=== PATIENT | female | born 2005 | race Caucasian/White ===

== ENCOUNTER 2024-06-15 05:18 | Emergency (ER) | payer OTHER, SELFPAY ==
[2024-06-15 05:24] VITALS: PULSE 112; TEMP 37; O2SAT 98; BMI 52.9
[2024-06-15 05:29] VITALS: BP 138/85
--- NOTE | 2024-06-15 05:47 | ED_ITS ---
HPI HPI - Back Pain/Injury General Chief Complaint: Back Pain/Injury Stated Complaint: BACK PAIN Time Seen by Provider: 06/15/24 05:24 Source: patient Mode of arrival: walk-in History of Present Illness HPI Narrative: This 19-year-old female who is 15 weeks presents for evaluation of right low back pain. The patient states she was recently diagnosed with an upper respiratory tract infection at [facility] emergency department. She was also told by her family physician that she has -induced asthma. She does not smoke but has been coughing recently and yesterday after a coughing spell felt a popping sensation in her right flank area. She was seen again at [facility] and told that she had a muscle strain and prescribed Tylenol. She states she is still having the pain despite the Tylenol and talk to her aunt about it who is in healthcare and was told that she may have herniated the disc. She also told her that it was safe to have certain radiographic studies done when you are . The patient is not having any fever. She has no lower extremity pain or swelling. She denies any chest pain but does have a dry cough. She has a lidocaine patch over her right flank area. She denies any urinary symptoms. She took Tylenol around midnight but has not taken any since. She is not having any vaginal bleeding or related complaints. Related Data Allergies Allergy/AdvReac Type Severity Reaction Status Date / Time promethazine Allergy Severe Hallucinati Verified 06/15/24 05:28 ng Sulfa (Sulfonamide Allergy Severe Hives Verified 06/15/24 05:28 Antibiotics) Opioid HPI Opioid Management Most Recent Opioid Data: No Data to Display Review of Systems ROS Status of ROS 10 or more systems reviewed and unremark able except as noted in history and below PFSH PFSH Social History Little interest or pleasure in doing things: not at all Feeling down, depressed, or hopeless: not at all Exam Narrative Exam Narrative: Vital signs and Nursing Notes reviewed: Patient is afebrile, she is tachycardic with a pulse of 112, blood pressure is mildly elevated 138/85, she has not hypoxic with pulse ox of 98% on room air General: Awake, alert, oriented, obese female resting comfortably on the stretcher, she has audible nasal congestion and intermittent dry cough HEENT: Normocephalic atraumatic, mucous membranes are moist and pink, eyes are clear, normal conjunctiva, vision is grossly intact, posterior pharynx is normal in appearance. Neck: Supple, no meningeal signs Chest: Lungs are clear to auscultation with good air entry, there is no wheezing rhonchi or rales appreciated no accessory muscle use, patient is speaking in complete sentences-no chest wall tenderness to palpation, intermittent dry cough noted CVS: Regular rate and rhythm S1-S2, no murmurs rubs or gallops, pulses are brisk and equal bilaterally ABD: Obese, soft, nondistended, nontender, no rebound guarding or rigidity, bowel sounds are normal Extremities: Moving all extremities, no lower extremity tenderness or swelling noted, negative Homans' sign, pulses are brisk and equal bilaterally Skin: Normal in appearance without rash,pallor, petechiae or purpura Neuro: No focal deficits Constitutional Vital Signs, click to edit/add: Last Vital Signs Temp 98.6 F 06/15/24 05:24 Pulse 112 H 06/15/24 05:24 Resp 18 06/15/24 05:24 BP 138/85 06/15/24 05:29 Pulse Ox 98 06/15/24 05:24 Course Vital Signs Vital signs: Vital Signs Temperature 98.6 F 06/15/24 05:24 Pulse Rate 112 H 06/15/24 05:24 Respiratory Rate 18 06/15/24 05:24 Pulse Oximetry 98 06/15/24 05:24 Temperature 98.6 F 06/15/24 05:24 Pulse Rate 112 H 06/15/24 05:24 Respiratory Rate 18 06/15/24 05:24 Blood Pressure 138/85 06/15/24 05:29 Pulse Oximetry 98 06/15/24 05:24 MDM - Back Pain/Injury MDM Narrative Medical decision making narrative: This 19-year-old female who is obese and 15 weeks presents for evaluation of right mid to low flank pain that started recently after an episode of coughing. She states that her family physician told her that she has -induced asthma and she was started on albuterol MDI. Her coughing lead to flank pain started yesterday and she was seen at [facility]. At [facility] she was told that she had a musculoskeletal back strain but her brad yfriend explains that she did not really get evaluated at that time. She is not having any urinary symptoms or related complaints. She has no lower extremity pain or swelling. She has not had a fever. A family member told her that she may have herniated disc while coughing. She does not have any midline bony vertebral tenderness and there is no radiation of her pain into her buttock s or legs. She does have audible nasal congestion and intermittent cough although her lungs are clear. She had been told by a family member that x-rays are safe in . I do not think that x-raying her back will give me any pertinent information but I do think a chest x-ray to rule out pneumonia is safe and prudent. A urine was ordered due to the fact that she is having flank pain although she does not appear to be passing a kidney stone clinically. She was medicated with Tylenol. She is wearing a lidocaine patch over her right flank. Urine is negative for infection and two-view chest x-ray was reviewed by myself. It does not show any acute pulmonary infiltrate, pneumothorax, she has normal cardiac borders. The results of her labs and urine were discussed with her. Again I do not think that x-raying her lumbar spine is going to give me any additional information. I explained to her that rest, gentle stretching, moist heat and Tylenol are her best bet at this time. She continue to use her albuterol MDI but I will not prescribe steroids to her. I encouraged her to follow-up closely with her family physician/[facility] for further evaluation and treatment. I did look up the lidocaine patches and they are category B in . I discussed this with her. She inquired about taking ibuprofen as she had been told by a nurse at [facility] that taking ibuprofen was safe in her . I did review ibuprofen in the pharmacopeia and it says it is category B in but category D in third trimester. This was discussed with her. I did encourage her if she was going to be taking ibuprofen to follow-up with her [facility] for confirmation of the category B listing. She is feeling better after the Tylenol and anxious to be discharged. Lab Data Labs: Lab Results 06/15/24 Range/Units 05:51 Urine Color Dk. yellow (YELLOW) Urine Clarity Clear (CLEAR) Urine pH 6.0 (5.0-9.0) Ur Specific Mcewen >=1.030 A (1.005-1.025) Urine Protein Trace (NEG/TRACE) mg/dL Urine Glucose (UA) Negative (NEGATIVE) mg/dL Urine Ketones Trace A (NEGATIVE) mg/dL Urine Occult Blood Trace-i (NEGATIVE) Urine Nitrite Negative (NEGATIVE) Urine Bilirubin Small A (NEGATIVE) Urine Urobilinogen 1.0 (0.2-1.0) EU/dL Ur Leukocyte Esterase Negative (NEGATIVE) Discharge Plan Discharge Chief Complaint: Back Pain/Injury Clinical Impression: Strain of lumbar region Patient Disposition: Home, Self-Care Time of Disposition Decision: 06:32 Condition: Good Print Language: Togolese Instructions: Low Back Strain (ED), Back Pain (ED), Lower Back Exercises (ED) Referrals: SEMAJ SHAH [Primary Care Provider] - 1 week
[2024-06-15] MEDS: ACETAMINOPHEN 325 MG TABLET 650 MG PO (05:57)
[2024-06-15 06:18] LABS: Bilirubin Urine SMALL (NEGATIVE); Blood Urine TRACE-I (NEGATIVE); Clarity Urine CLEAR (CLEAR); Color Urine DK. YELLOW (YELLOW); Glucose Urine UA NEGATIVE (NEGATIVE); Ketones Urine TRACE mg/dL (NEGATIVE); Leukocyte Esterase Urine NEGATIVE (NEGATIVE); Nitrite Urine NEGATIVE (NEGATIVE); Protein Urine TRACE mg/dL (NEG/TRACE); Specific Gravity Urine >=1.030 (1.005-1.025)
[2024-06-15 06:25] LABS: Bacteria Urine SMALL #/HPF (NONE SEEN); Cast Seen? NONE SEEN #/LPF (NONE SEEN); Crystals Seen? None Seen #/HPF (None Seen); Mucus Urine NONE SEEN (NONE SEEN); Squamous Epithelial Cell Urine MODERATE #/LPF (NONE/RARE); Urine Culture Indicated YES-FRMC
== END 2024-06-15 06:44 | disposition home or self-care (01) ==
PROVIDERS: Emergency Provider Emergency Medicine; PCP Nurse Practitioner Family
DX: O99.891 Other specified diseases and conditions complicating pregnancy (principal); S39.012A Strain of muscle, fascia and tendon of lower back, initial encounter; X58.XXXA Exposure to other specified factors, initial encounter; O99.512 Diseases of the respiratory system complicating pregnancy, second trimester; Z3A.15 15 weeks gestation of pregnancy; J45.998 Other asthma
CPT/HCPCS: 71046; 81001; 87086; 87088; 87186; 99284

== ENCOUNTER 2024-07-10 13:12 | Emergency (ER) | payer OTHER, SELFPAY ==
--- OUTSIDE RECORDS SUMMARY | 2024-07-03 08:00 | XMS_ITS | Encounter Summary ---
Author Organization [facility] Address [address] [place] [address] Care Team Providers Care Environmental Conflict Manager Name Role Phone Norma Bernal APRN, NP Primary Care Provid er Reason for Visit * Physical Therapy (Routine) - Open Specialty Diagnoses / Procedures Referred By Joan franco Referred To Contact Physical Therapy Diagnoses 16 weeks gestation of Other back pain, unspecified chronicity Cecy Guadalupe, FEDERICO - CNM [address] [facility] [address] [place] [address] Phone: tel: fax: [facility] Physical Therapy [address] [place] [address] Phone: tel: Referral ID Status Reason Start Date Expiration Date V isits Requested Visits Authorized [id number] Open Specialty Services Required 06/23/2024 06/23/2025 1 1 Encounter Details Date Type Department Care Team (Latest Contact Info) Description 07/03/2024 8:00 AM EDT - 07/03/2024 11:59 PM EDT Hospital Encounter [facility] Physical Therapy [address] [place] [id number] Barry Vitale, IRVIN Discharge Disposition: Home or Self Care Social History Tobacco Use Types Packs/Day Years Used Date Smoking Tobacco: Never Smokeless Tobacco: Never Alcohol Use Standard Drinks/Week Comments No 0 (1 standard drink = 0.6 oz pur e alcohol) [facility] Utilities Answer Date Recorded In the past 12 months has th e electric, gas, oil, or water company threatened to shut off services in your home? No 04/21/2024 Overall Financial Resource Strain (CARDIA) Answe r Date Recorded How hard is it for you to pa y for the very basics like food, housing, medical care, and heating? Not very hard 03/28/2022 PHQ-2 Answer Date Recorded PHQ-9 Total Score 0 05/19/2024 Hunger Vital Sign Answer Date Recorded Within the past 12 months, y ou worried that your food would run out before you got the money to buy more. Never true 03/28/19 Within the past 12 months, t he food you bought just didn't last and you didn't have money to get more. Never true 03/28/2022 PRAPARE - Transportation Answer Date Re corded Lack of Transportation (Medical) Not on file 03/28/2022 In the past 12 months, has l ack of transportation kept you from meetings, work, or from getting things needed for daily living? No 03/28/2022 Housing Stability Vital Sign Answer Marvin e Recorded Unable to Pay for Housing in the Last Year Not o n file 03/28/2022 Number of Places Lived in the Last Year Not on f ile 03/28/2022 In the last 12 months, was t here a time when you did not have a steady place to sleep or slept in a residential (including now)? No 03/28/2022 Housing Stability Vital Sign Answer Marvin e Recorded Unable to Pay for Housing in the Last Year Not o n file 04/21/2024 In the past 12 months, how m any times have you moved where you were living? 0 04/21/2024 At any time in the past 12 m [facility], were you homeless or living in a residential (including now)? No 04/21/2024 Food Insecurity Answer Date Recorded Within the past 12 months, y ou worried that your food would run out before you got the money to buy more. 1 04/21/2024 Within the past 12 months, t he food you bought just didn't last and you didn't have money to get more. 1 04/21/2024 Estimated Date of Delivery Comme nts Yes 12/06/2024 Based on Ultraso und Sex and Gender Information Value Date Recorded Sex Assigned at Female 03/28/2022 12:08 PM EST Legal Sex Female 4:23 PM EST Gender Identity Female 03/28/2022 12:08 PM EST Sexual Orientation Not on file documented as of this encounter Medications at Time of Discharge albuterol sulfate HFA (PROVENTIL;VENTOL IN;PROAIR) 108 (90 Base) MCG/ACT inhaler 2 puff as needed Inhalation every 4 hrs for 30 days 06/05/2024 amoxicillin (AMOXIL) 500 MG capsule 06/09/2024 ARIPiprazole (ABILIFY) 10 MG tablet Take 1 tablet by mouth daily 02/26/2024 SYMBICORT 160-4.5 MCG/ACT AERO 2 puffs Inhalation once a day for 30 days 06/05/2024 cephALEXin (KEFLEX) 500 MG capsule Cephalexin 500 mg capsule Active 500 MG PO Twice daily 14 December 11, 2023 12:00am 12/11/2023 omeprazole (PRILOSEC) 40 MG delayed release capsuleIndication s:Gastroesophagea l reflux disease without esophagitis Take 1 capsule by mouth every morning (before breakfast) 30 capsule 5 06/23/2024 OLANZapine (ZYPREXA) 2.5 MG tablet every 24 hours 04/13/2024 levothyroxine (SYNTHROID) 50 MCG tablet Take 1 tablet by mouth Daily Vit-Fe Fumarate-FA ( PO) Take by mouth FLUoxetine (PROZAC) 20 MG capsule take 1 capsule by mouth once daily 30 capsule 1 07/16/2023 documented as of this encounter Progress Notes * Barry Vitale, PT - 07/03/2024 8:00 AM EDT [facility] Outpatient Physical Therapy Evaluation Date: 07/03/2024 Patient: Louise Rosario : 2005 CSN #: [id number] Referring Physician: Cecy Guadalupe, * Medical Diagnosis: Z3A.16 (ICD-10-CM) - 16 weeks gestation of M54.89 (ICD-10-CM) - Other back pain, unspecified chronicity Treatment Diagnosis: low back strain Onset Date: 06/14/24 PT Insurance Information: [employer] Total # of Visits Approved: 8 Total # of Visits to Date: 1 No Show: 0 Canceled Appointment: 0 [x] This senior grant writer acknowledges review of patient history form Subjective Subjective: Pt is 17wks and developed a severe cough and felt a pop on the R side while coughing and had intense pain, then a few days later the same thing happened on the L side. Pain increased with coughing and positions become uncomfortable once pain flares up from coughing. Coughing onset after eating. Additional Pertinent Hx: panic attacks, gland issues, astma, depression, anxiety, ITP Objective Strength Strength LUE L Shoulder Flexion: 4+/5 L Shoulder ABduction: 4+/5 Strength LLE L Hip Flexion: 4+/5 L Hip ABduction: 4+/5 Right Strength Strength RUE R Shoulder Flexion: 4+/5 R Shoulder ABduction: 4+/5 Strength RLE R Hip Flexion: 4+/5 R Hip ABduction: 4+/5 Lumbar Assessment AROM Lumbar Spine Flexion: 86 Extension: 38 Lateral Flexion Right: 30 Lateral Flexion Left: 44 Right Rotation: 25% limited Left Rotation: 25% limited Exercises: Exercise 1: HEP: LTR with deep breathing, sidelying QL stretch, open book on wall/supine Exercise 2: * : No STIM: lumbar mobility and strength for lumbar extensors/rotators, light core strength, weighted standing sidebend, QL stretching, seated goodmornings, avoid R sidelying if uncomforable for pt Assessment Body Structures, Functions, Activity Limitations Requiring Skilled Therapeutic Intervention: Decreased functional mobility , Decreased ROM, Decreased body mechanics, Decreased tolerance to work activity, Increased pain Assessment: Pt is a 19 y.o. who is 17wks and having increased B low back pain from heavy coughing. Pain is located superiorly to B PSIS and medially from iliac crests B. Min TTP to L side noTTP to R side. Pt demoes decresaed lumbar sidebend to R compared to L and decreased B rotation. Pt display pain at end ranges of all lumbar ROM. B UE and LE MMTs do not reproduce symptoms. Pt currently having difficulty with bending and twisting tasks d/t pain. Pt would benefit from skilled therapyin order to address these deficits and return to PLOF. Therapy Prognosis: Good Decision Making: Low Complexity Patient Education Patient Education: Pt educatated on PT POC, HEP Pt verbalized/demonstrated good understanding: [X] Yes [] No, pt required further clarification. Goals Short Term Goals Time Frame for Short Term Goals: 2 weeks Short Term Goal 1: Pt will be inititated with HEP. Short Term Goal 2: Pt will tolerate 30-40 minutes of ther ex to improve function with ADL's. Acoustical Carpenter Goals Time Frame for Acoustical Carpenter Goals : 6 weeks Custodial Goal 1: Pt will independant and compliant with HEP to maintain functional gains made at therapy. Custodial Goal 2: Pt will report 2/10 or less low back pain/tightness on average to facilitate completion of ADL's. Custodial Goal 3: Pt will improve R lumbar side bend from 30* to 44* or better with min to no pain for greater symmetry with L. Custodial Goal 4: Pt to improve gross lumbar ROM to be non painful for ease with bending/twisting. Acoustical Carpenter Goal 5: Pt to report 70% improvement in symptoms to display increased QOL. Minutes Tracking: Time In: 0800 Time Out: 0840 Minutes: 40 Timed Code Treatment Minutes: 38 Minutes BARRY VITALE PT, DPT 07/03/2024 * Barry Vitale PT - 07/03/2024 8:00 AM EDT [facility] Outpatient Physical Therapy Date: 07/03/2024 Patient: Louise Rosario : 2005 CSN #: [id number] Referring Physician: Cecy Guadalupe, * [x] Plan of Care [] Updated Plan of Care Dates of Service to Include: 07/03/2024 to 08/14/24 Diagnosis: Z3A.16 (ICD-10-CM) - 16 weeks gestation of M54.89 (ICD-10-CM) - Other back pain, unspecified chronicity Rehab (Treatment) Diagnosis: low back strain Onset Date: 06/14/24 Attendance Total # of Visits to Date: 1 No Show: 0 Canceled Appointment: 0 Assessment Body Structures, Functions, Activity Limitations Requiring Skilled Therapeutic Intervention: Decreased functional mobility , Decreased ROM, Decreased body mechanics, Decreased tolerance to work activity, Increased pain Assessment: Pt is a 19 y.o. who is 17wks and having increased B low back pain from heavy coughing. Pain is located superiorly to B PSIS and medially from iliac crests B. Min TTP to L side noTTP to R side. Pt demoes decresaed lumbar sidebend to R compared to L and decreased B rotation. Pt display pain at end ranges of all lumbar ROM. B UE and LE MMTs do not reproduce symptoms. Pt currently having difficulty with bending and twisting tasks d/t pain. Pt would benefit from skilled therapyin order to address these deficits and return to PLOF. Goals Short Term Goals Time Frame for Short Term Goals: 2 weeks Short Term Goal 1: Pt will be inititated with HEP. Short Term Goal 2: Pt will tolerate 30-40 minutes of ther ex to improve function with ADL's. Acoustical Carpenter Goals Time Frame for Custodial Goals : 6 weeks Custodial Goal 1: Pt will independant and compliant with HEP to maintain functional gains made at therapy. Custodial Goal 2: Pt will report 2/10 or less low back pain/tightness on average to facilitate completion of ADL's. Acoustical Carpenter Goal 3: Pt will improve R lumbar side bend from 30* to 44* or better with min to no pain for greater symmetry with L. Acoustical Carpenter Goal 4: Pt to improve gross lumbar ROM to be non painful for ease with bending/twisting. Acoustical Carpenter Goal 5: Pt to report 70% improvement in symptoms to display increased QOL. Prognosis Therapy Prognosis: Good Treatment Plan Plan Frequency: 1 Plan weeks: 8 [x] HP/CP [] Electrical Stim [x] Therapeutic Exercise [] Gait Training [] Aquatics [] Ultrasound [x] Patient Education/HEP [x] Manual Therapy [] Traction [] Neuro-shu [x] Soft Tissue Mobs [] Therapeutic Activity [] Iontophoresis [] Orthotic casting/fitting [] Dry Needling [] Blood Flow Restriction [] Vasopneumatic Compression [] Vasopneumatic Compression/Cold [] Vestibular Rehabilitation Electronically signed by: BARRY VITALE PT, DPT Date: 07/03/2024 Date: 07/03/2024 Physician Signature Cosigned by Cecy Guadalupe APRN - CNM at 07/03/2024 9:06 AM EDT documented in this encounter Plan of Treatment Upcoming Encounters Date Type Department Care Team (Late st Contact Info) Description 07/20/2024 8:00 AM EDT Ancillary Procedure [facility] [address] [place] [address] OB 20 wk US 07/20/2024 9:00 AM EDT Routine [address] [facility] [place] [address] Cecy Guadalupe APRN - CNM [address] [place] [address] [address] [place] [address] OB 20 wk US 09/28/2024 8:30 AM EDT Ancillary Procedure [address] [place] [address] ANTELMO 12/0609/28/2024 9:00 AM EDT Routine [address] [place] [address] Cecy Guadalupe APRN - CNM [address] [place] [address] [address] [place] [address] ANTELMO 12/06 Scheduled Referrals Name Type Priority Associated Diagnoses Orde r Schedule [facility] Physical Therapy [facility] Outpatient Referral Routine 16 weeks gestation of Other back pain, unspecified chronicity Ordered: 06/23/2024 documented as of this encounter Visit Diagnoses Not on filedocumented in this encounter Care Teams Environmental Conflict Manager Relationship Specialty Start Date End Date Norma Bernal APRN - PRACTICE ADVISOR [address] [place] [id number] PCP - General Family Medicine 05/27/24 documented as of this encounter
--- OUTSIDE RECORDS SUMMARY | 2024-07-03 08:00 | XMS_ITS ---
Author Name Auto Generated Organization OHIP Care Team Providers Care Manpower Development Advisor Name Role Phone RADHA MCCULLOUGH Attending Unavailable MANE ELLISON Referring Unavailable SHANITA DICKSON Attending Unavailable RADHA MCCULLOUGH Attending Unavailable ALYSSA, SEMAJ Primary Care Unavailable MANE ELLISON Referring Unavailabl e YONLEY, DANIELLE L Primary Care Unavailable MANE ELLISON Referring Unavailabl e YONLEY, DANIELLE L Primary Care Unavailable MANE ELLISON Referring Unavailabl e ALYSSA, SEMAJ Primary Care Unavailable MANE ELLISON Referring Unavailabl e ALYSSA, SEMAJ Primary Care Unavailable ALYSSA, SEMAJ Primary Care Unavailable MANE ELLISON Referring Unavailabl e SCOT, MANE MATHIS Referring Unavailabl e YONLEY, DANIELLE L Primary Care Unavailable [facility] [place] [facility] Unav ailable Elina Worthington Attending Unavailable Elina Worthington Admitting Unavailable Marker, Diamond Goncalves Admitting Unavailable Marker, Diamond Goncalves Attending Unavailable NO FAMILY, PHYSICIAN Primary Care Unavailable Marian Garcia Attending Unavailable Marian Garcia Admitting Unavailable [facility] Unav ailable Cristofer Hamilton Attending Unavailable Cristofer Hamilton Admitting Unavailable PROBLEMS DATE TYPE CONDITION / CODE ATTENDING STATUS [facility] 06/14/2024 Admitting diagnosis Back Pain / 12() [facility] 06/14/2024 Unknown Other low back pain / M54.59(ICD-10) Elina Worthington [facility] [place] [facility] 06/09/2024 Unknown Chronic cough / R05.3(ICD-10) Cristofer Hamilton [facility] [place] [facility] 05/27/2024 Admitting diagnosis Hypothyroidism, unspecified / E03.9(ICD-10) [facility] 05/27/2024 Admitting diagnosis 12 weeks gestation of / Z3A.12(ICD-10) [facility] 05/19/2024 Unknown Encounter for screening for malignant neoplasm of cervix / Z12.4(ICD-10) [facility] 05/11/2024 Admitting diagnosis Family history of carrier of genetic disease / Z84.81(ICD-10) [facility] 05/11/2024 Admitting diagnosis Family history of other specified conditions / Z84.89(ICD-10) [facility] 05/11/2024 Admitting diagnosis Encounter for supervision of other normal , first trimester / Z34.81(ICD-10) [facility] 05/11/2024 Admitting diagnosis Encounter for supervision of other normal , second trimester / Z34.82(ICD-10) [facility] 05/11/2024 Admitting diagnosis Encounter for supervision of other normal , third trimester / Z34.83(ICD-10) [facility] 04/07/2024 Unknown Amenorrhea, unspecified / N91.2(ICD-10) [facility] 04/07/2024 Unknown Encounter for supervision of normal first , first trimester / Z34.01(ICD-10) [facility] 04/07/2024 Unknown Hypothyroidism, unspecified / E03.9(ICD-10) [facility] 04/07/2024 Unknown Body mass index (BMI) 50.0-59.9, adult / Z68.43(ICD-10) [facility] 12/11/2023 Unknown Dysuria / R30.0(ICD-10) Marian Garcia [facility] PROCEDURES No Procedure Records Found RESULTS URINE CULTURE Observed: 06/15/2024 5:51 AM Status: F Source: [facility] ORGANISM: Klebsiella pneumon iae (O:KLEPNE) [place] Count >100,000 Aerobic MARY GRACE Charge (NMIC56) SUSCEPTIBILITY ORGANISM: O:KLEPNE ANTIBIOTIC INTERPRETATION MARY GRACE Amikacin S <16 Amoxacillin/K Clavulanate S <8 Ampicillin/Sulbactam R >16 Aztreonam S <4 Cefazolin S <2 Cefepime S <2 Ceftazidime S <1 Ceftazidime/Avibactam S <4 Ceftolozane/Tazobactam S <2 Ceftriaxone S <1 Cefuroxime S <4 Ciprofloxacin S <0.25 Ertapenem S <0.5 Gentamicin S <2 Levofloxacin S <0.5 Meropenem S <1 Meropenem/Vaborbactam S <2 Nitrofurantoin S <32 Piperacillin/Tazobactam S <8 Tetracycline S <4 Tigecycline S <2 Tobramycin S <2 Trimethoprim/Sulfamethoxazole S <0.5 S = SUSCEPTIBLE I = INTERMEDIATE R = RESISTANT BLANK = DATA NOT AVAILABLE, OR DRUG NOT ADVISABLE OR TESTED R* = RESISTANCE DUE TO EXTENDED SPECTRUM BETA-LACTAMASES ESBL = EXTENDED SPECTRUM BETA-LACTAMASE TFG = THYMIDINE-DEPENDENT STRAIN SHILA = BETA-LACTAMASE POSITIVE IB = INDUCIBLE BETA-LACTAMASE. APPEARS IN PLACE OF 'S' WITH SPECIES KNOWN TO POSSESS INDUCIBLE BETA-LACTAMASES. POTENTIALLY THEY MAY BECOME RESISTANT TO ALL B-LACTAM DRUGS. PERFORMED BY: [place] [address] [facility] OPTICAL INSTRUMENT ASSEMBLER TOYA KENDRICK M.D. Performed By: #### CUU #### [address] D-DIMER HIGH SENSITIVITY Collected: 11:52 AM Status: F Source: [facility] TYPE CODE TESTS RESULT OUT OF RANGE REFERENCE UNITS LAB DDIMER D-Dimer High Sensitivity <200 Normal 0-243 ng/mL Result Comment: The referenc e range for D-dimer is <243 ng/mL D-dimer units. D-dimer results must be used in conjunction with a clinical pretest probability (PTP) assessment model for deep vein thrombosis (DVT) and pulmonary embolism (PE). Results <230 ng/mL d-dimer units can be used as a negative predictor in patients with low or moderate probability for DVT/PE. Results above the exclusion threshold of 230 ng/ml D-dimer units for DVT/PE may indicate the need for further diagnostic testing. D-Dimer can be increased in hospitalized patients due to co-morbid conditions. A hematocrit value greater than 55% may lead to inaccurate results in coagulation testing. Patients having hematocrit values >55% require a special collection tube for coagulation studies. Please contact the laboratory at [phone] for redraw instructions. PERFORMED BY: [facility] [address] [place] [address] PATHOLOGIST OPTICAL INSTRUMENT ASSEMBLER TOYA KENDRICK M.D. Performed By: #### DDIMER ## ## [place] [id number] [facility] COMPLETE BLOOD COUNT AUTO DIFF Collected: 06/09/2024 11:52 AM Status: F Source: [facility] TYPE CODE TESTS RESULT OUT OF RANGE REFERENCE UNITS LAB WBC White Blood Count 15.0 High 3.8-11.6 10*3/uL LAB UNWBC Uncorrected WBC 15.0 High 3.8-11.6 10*3/uL LAB RBC Red Blood Count 4.21 Normal 3.60-5.00 10*6/u L LAB HGB Hemoglobin 13.0 Normal 11.8-15.4 g/dL LAB HCT Hematocrit 38.1 Normal 34.0-46.4 % LAB MCV Mean Corpuscular Volume 90.6 Normal 80-100 fL LAB MCH Mean Corpuscular Hemoglobin 31.0 Normal 24.7-34.3 pg LAB MCHC Mean Corpuscular HGB Conc 34.2 Normal 32.0-35.0 g/dL LAB RDW Red Cell Distribution Width 14.0 Normal 11.9-15.3 % LAB PLT Platelet Count 281 Normal 150-450 10*3/uL LAB MPV Mean Platelet Volume 8.8 Normal 6.3-10.7 fL LAB MDW Monocyte Distribution Width 21.46 High 0.00-20.00 % Result Comment: For adults i n ED, MDW > 20.0 may be associated with a higher risk of sepsis during the first 12 hrs of hospital admission LAB NE% Neutrophils % (Auto) 78.8 . % LAB LY% Lymphocytes % (Auto) 15.0 . % LAB MO% Monocytes % (Auto) 4.8 . % LAB EO% Eosinophils % (Auto) 0.7 . % LAB BA% Basophils % (Auto) 0.7 . % LAB NRBC% NRBC% 0.1 Normal 0-0.5 /100{WBC } LAB NE# Neutrophils # (Auto) 11.8 High 1.8-7.7 10*3/uL LAB LY# Lymphocytes # (Auto) 2.2 Normal 1.00-4.8 10*3/uL LAB MO# Monocytes # (Auto) 0.7 Normal 0.0-0.8 10*3/uL LAB EO# Eosinophils # (Auto) 0.1 Normal 0.0-0.45 10*3/uL LAB BA# Basophils # (Auto) 0.1 Normal 0.0-0.2 10*3/uL Result Comment: PERFORMED BY : [place] [address] PATHOLOGIST OPTICAL INSTRUMENT ASSEMBLER TOYA KENDRICK M.D. Performed By: #### CMP, CBC #### [facility] [address] [place] [address] COMPREHENSIVE METABOLIC PANEL Collected: 06/09/2024 1 1:52 AM Status: F Source: [facility] TYPE CODE TESTS RESULT OUT OF RANGE REFERENCE UNITS LAB GLU Glucose 84 Normal 70-100 mg/dL Result Comment: Random Gluco se Reference Range is dependent on time and content of last meal. Glucose of more than 200 mg/dL in a nonstressed, ambulatory subject supports the diagnosis of Diabetes Mellitus. ADA recommended reference range LAB BUN Blood Urea Nitrogen 8 Normal 7-25 mg/d L LAB CREATT Creatinine 0.53 Low 0.60-1.20 mg/dL LAB GFReNR Estimated GFR >60.0 mL/Min LAB NA Sodium 135 Low 136-145 mmol/L LAB K Potassium 3.9 Normal 3.5-5.1 mmol/L LAB CL Chloride 103 Normal 98-107 mmol/L LAB CO2 Carbon Dioxide 23.6 Normal 21.0-31.0 mmol/L LAB GAP Anion Gap 12.3 Normal 6.0-15.0 meq/L LAB CA Calcium 9.5 Normal 8.6-10.3 mg/dL LAB TP Total Protein 7.6 Normal 6.4-8.9 g/dL LAB ALB Albumin Level 4.0 Normal 3.5-5.7 g/dL LAB GLOB Globulin 3.6 g/dL LAB AGRATIO Albumin/Globulin Ratio 1.1 LAB BILIT Bilirubin,Total 0.4 Normal 0.3-1.0 mg/dL LAB AST Aspartate Amino Transferase 27 Normal 13-39 U/L LAB ALT Alanine Aminotransferase 43 Normal 7-52 U/L LAB ALP Alkaline Phosphatase 57 Normal 34-104 U/L LAB CRCLPHA Creatinine Clr C [facility] Pharmacy 221.01 Result Comment: PERFORMED BY : [place] [address] PATHOLOGIST OPTICAL INSTRUMENT ASSEMBLER TOYA KENDRICK M.D. Performed By: #### CMP, CBC #### [facility] [address] [place] [place] [address] ECG 12 LEAD ECG Observed: 06/09/2024 11:20 AM Status: COMPLETED Source: [facility] [place] [address] [place] [address] Electrocardiograph Report Signed Patient: Dax Rosario MR#: [id number] : 2005 Acct:[id number] Age/Sex: 19 / F ADM Date: 06/09/24 Loc: ER Room: Type: [facility] ER Attending Dr: Ordering Provider: Cristofer Hamilton APRN Date of Service: 06/09/24 ECG/ECG 12 lead ECG: Upper Respiratory Infection Copies to: Test Reason : Blood Pressure : 136/76 mmHG Vent. Rate : 105 BPM Atrial Rate : 105 BPM P-R Int : 120 ms QRS Dur : 76 ms QT Int : 350 ms P-R-T Axes : 63 53 59 degrees QTcB Int : 462 ms Sinus tachycardia Nonspecific T wave abnormality Prolonged QT Confirmed by Germaine Rojsa MD ([id number]) on 06/09/2024 7:07:13 PM Referred By: Electronically Signed By: Germaine Rojas MD Transcribed By: MUS Signed By Germaine Rojas MD 05/20 COVID-19 / FLU A/B / RSV PCR Observed: 0 06/09/2024 11:20 AM Status: F Source: [facility] COVID-19 Cepheid Result Negative for SARS-CoV-2 RNA by RT-PCR Flu A Cepheid Result Negative for Flu A RNA by RT-PCR Flu B Cepheid Result Negative for Flu B RNA by RT-PCR RSV Cepheid Result Negative for RSV RNA by RT-PCR COVID19 Blank Space Reference: Negative COVID19 Blank Space Cepheid Disclaimer The Cepheid Xpert Xpress CoV-2/Flu/RSV Plus has Cepheid Disclaimer not been FDA cleared or approved; this test has Cepheid Disclaimer been authorized by FDA under an EUA for use by Cepheid Disclaimer authorized laboratories; this test has been Cepheid Disclaimer authorized only for the simultaneous qualitative Cepheid Disclaimer detection and differentiation of nucleic acids from Cepheid Disclaimer SARS-CoV-2, influenza A, influenza B, and Cepheid Disclaimer respiratory syncytial virus (RSV), and not for any Cepheid Disclaimer other viruses or pathogens; and this test is only Cepheid Disclaimer authorized for the duration of the declaration that Cepheid Disclaimer circumstances exist justifying the authorization of Cepheid Disclaimer emergency use of in vitro diagnostic tests for Cepheid Disclaimer detection and/or diagnosis of COVID-19 under Cepheid Disclaimer Section 564(b)(1) of the Act, 21 U.S.C. 360bbb- Cepheid Disclaimer 3(b)(1), unless the authorization is terminated or Cepheid Disclaimer revoked sooner. PERFORMED BY: [place] [address] PATHOLOGIST OPTICAL INSTRUMENT ASSEMBLER TOYA KENDRICK M.D. Performed By: #### COVID19 F MERCEDES RSV, CEPHEID NEG #### [address] CEPHEID COVID PCR NEGATIVE Collected: 0 06/09/2024 11:20 AM Status: F Source: [facility] TYPE CODE TESTS RESULT OUT OF RANGE REFERENCE UNITS LAB CEPHEID NEG Cepheid COVID PCR Negative Negative Negative Result Comment: This is a du plicate Cepheid Xpert Xpress CoV-2/Flu/RSV Plus RNA by RT-PCR result to be used for statistical tracking purpose only. PERFORMED BY: [facility] [address] [facility] [place] [address] PATHOLOGIST OPTICAL INSTRUMENT ASSEMBLER TOYA KENDRICK M.D. Performed By: #### COVID19 F MERCEDES RSV, CEPHEID NEG #### [facility] [address] THYROID STIM. HORM. Collected: 05/28/19 25 1:28 PM Status: F Source: [facility] TYPE CODE TESTS RESULT OUT OF RANGE REFERENCE UNITS LAB TSH(LOINC) Thyroid Stim. Horm. 1.12 0.27-4.20 uIU/mL Performed By: #### TSH #### [address] [place] [address] Merchandise Supervisor: Mj Rangel MD #### THYGLA, AMSOM, FT3, FT4 #### [address] [address] Merchandise Supervisor: Timur German MD T3, FREE Collected: 5 1:28 PM Status: F Source: [facility] TYPE CODE TESTS RESULT OUT OF RANGE REFERENCE UNITS LAB FT3(LOINC) T3, Free 3.75 2.00-4.40 pg/mL Performed By: #### TSH #### [address] [place] [id number] Merchandise Supervisor: Mj Rangel MD #### THYGLA, AMSOM, FT3, FT4 #### [address] [address] Merchandise Supervisor: Timur German MD THYROXINE, FREE Collected: 5 1:28 PM Status: F Source: [facility] TYPE CODE TESTS RESULT OUT OF RANGE REFERENCE UNITS LAB FT4(LOINC) Thyroxine, Free 1.2 0.92-1.68 ng/dL Performed By: #### TSH #### [address] [place] [address] Merchandise Supervisor: Mj Rangel MD #### THYGLA, AMSOM, FT3, FT4 #### [place] [id number] [place] [address] Merchandise Supervisor: Timur German MD ANTI-THY PEROXIDASE Collected: 05/27/2024 1:[address] atus: F Source: [facility] TYPE CODE TESTS RESULT OUT OF RANGE REFERENCE UNITS LAB AMSOM(LOINC) Anti-Thy Peroxidase <4.0 0.0-25.0 IU/mL Result Comment: Reference Range: <25.0 Negative 25.0-35.0 Equivocal >35.0 Positive When results are Equivocal, it is recommended to retest after 8-12 weeks. Performed By: #### TSH #### [address] [place] [address] Merchandise Supervisor: Mj Rangel MD #### THYGLA, AMSOM, FT3, FT4 #### [place] [id number] [place] [address] Merchandise Supervisor: Timur German MD THYROGLOBULIN AB Collected: 05/27/2024 1:28 PM Statu s: F Source: [facility] TYPE CODE TESTS RESULT OUT OF RANGE REFERENCE UNITS LAB THYGLA(LOINC) Thyroglobulin Ab 15.0 0.0-40.0 IU/mL Result Comment: Reference Range: <40.0 Negative 40.0-60.0 Equivocal >60.0 Positive When results are Equivocal, it is recommended to retest after 8-12 weeks. Performed By: #### TSH #### [address] [place] [address] Merchandise Supervisor: Mj Rangel MD #### THYGLA, AMSOM, FT3, FT4 #### [place] [id number] [place] [address] Merchandise Supervisor: Timur German MD CYTOLOGY REPORT Observed: 05/19/2024 12:00 AM Status: F Source: [facility] (NOTE) Path Number: [id number] DIAGNOSIS Imaged ThinPrep Pap - Cervical (1 monolayer slide): Specimen Adequacy: Satisfactory for evaluation. - Endocervical/transformation zone component present. Descriptive Diagnosis: Negative for intraepithelial lesion or malignancy. Cytotech Screener: EY Electronically Signed Out Kevin Perez CT(ASCP) ey/05/26/2024 Source of Specimen: A: Imaged ThinPrep Pap - Cervical (1 monolayer slide) Clinical History Z12.4 Encounter for screening for malignant neoplasm of cervix LMP: 02/06/2024 Processing Lab: [address] [address] Interpretation performed at [address] [id number] This Pap Test has been evaluated with the assistance of the ThinPrep Pap Test Imaging System. The Pap smear is a screening test primarily for squamous epithelial lesions, which is subject to both false negative and false positive results. Your patient should be reminded to consult you immediately if she experiences any suspicious signs or symptoms, regardless of her Pap smear result. GYNECOLOGIC CYTOLOGY REPORT Patient Name: DAX ROSARIO [facility] Rec: [id number] [facility] ANATOMIC PATHOLOG[facility] [address] [place] [address]. [place], [place] [address] CULT,URINE Observed: 04/07/2024 11:00 AM Status: F Source: [facility] Specimen Description .CLEAN CATCH URINE Special Requests Site: Urine Culture NO SIGNIFICANT GROWTH Report Status FINAL 04/08/2024 Performed By: #### URC #### [address] [address] Merchandise Supervisor: Timur German MD [facility] [address] [place] [address] [place] [address] Merchandise Supervisor: Mj Rangel MD CHLAMYDIA/GC DNA, UR Collected: 025 11:00 AM Status: F Source: [facility] TYPE CODE TESTS RESULT OUT OF RANGE REFERENCE UNITS LAB UCT(LOINC) Chlamydia Probe, Ur NEGATIVE NEG Result Comment: CHLAMYDIA TR ACHOMATIS DNA not detected by nucleic acid amplification. This test is intended for medical purposes only and is not valid for the evaluation of suspected sexual abuse or for other forensic purposes. In certain contexts, culture may be required to meet applicable laws and regulations for diagnosis of C. trachomatis and N. gonorrhoeae infections. Per 2014 CDC recommendations, this test does not include confirmation of positive results by an alternative nucleic acid target. LAB MITCHEL(LOINC) Gonorrhea Probe, Ur NEGATIVE NEG Result Comment: NEISSERIA GO NORRHOEAE DNA not detected by nucleic acid amplification. This test is intended for medical purposes only and is not valid for the evaluation of suspected sexual abuse or for other forensic purposes. In certain contexts, culture may be required to meet applicable laws and regulations for diagnosis of C. trachomatis and N. gonorrhoeae infections. Per 2014 CDC recommendations, this test does not include confirmation of positive results by an alternative nucleic acid target. Performed By: #### UCGP #### [address] [address] Merchandise Supervisor: Timur German MD THYROID STIM. HORM. Collected: 04/07/19 9:00 AM Status: F Source: [facility] TYPE CODE TESTS RESULT OUT OF RANGE REFERENCE UNITS LAB TSH(LOINC) Thyroid Stim. Horm. 5.55 High 0.27-4.20 uIU/mL Result Comment: Specimen hem olysis has exceeded the interference as defined by Monika. Value may be falsely increased. Suggest recollection if clinically indicated. Performed By: #### TSH #### [facility] [address] [place] [address] Merchandise Supervisor: Mj Rangel MD #### FT4 #### [address] [address] Merchandise Supervisor: Timur German MD THYROXINE, FREE Collected: 5 9:00 AM Status: F Source: [facility] TYPE CODE TESTS RESULT OUT OF RANGE REFERENCE UNITS LAB FT4(LOINC) Thyroxine, Free 1.0 0.92-1.68 ng/dL Performed By: #### TSH #### [facility] [address] [place] [address] Merchandise Supervisor: Mj Rangel MD #### FT4 #### [place] [id number] [place] [address] Merchandise Supervisor: Timur German MD TYPE + SCRN Observed: 5 9:00 AM Status: F Source: [facility] ABO/Rh(D) A POSITIVE Antibody Screen NEGATIVE Performed By: #### PRTYS ### # [facility] [address] [place] [address] Merchandise Supervisor: Mj Rangel MD PROFILE Collected: 5 9:00 AM Status: F Source: [facility] TYPE CODE TESTS RESULT OUT OF RANGE REFERENCE UNITS LAB WBC(LOINC) WBC Count 10.6 4.5-13.5 k/uL LAB RBC(INC) RBC Count 4.47 3.95-5.11 m/uL LAB HGB(LOINC) Hemoglobin 13.9 11.9-15.1 g/dL LAB HCT(LOINC) Hematocrit 41.7 36.3-47.1 % LAB MCV(LOINC) MCV 93.3 82.6-102.9 fL LAB MCH(INC) MCH 31.1 25.2-33.5 pg LAB MCHC(INC) MCHC 33.3 28.4-34.8 g/dL LAB RDW(LOINC) RDW 13.2 11.8-14.4 % LAB PLT(LOINC) Platelet Count 242 138-453 k/uL LAB MPVX(INC) MPV 11.7 8.1-13.5 fL LAB NRBCS(LOINC) NRBC Automated 0.0 0.0 per 100 WBC LAB SEG(LOINC) Neutrophil (Seg) 71 High 34-64 % LAB LYM(LOINC) Lymphocyte 19 Low 25-45 % LAB MON(LOINC) Monocyte 6 2-8 % LAB EO(LOINC) Eosinophil 1 1-4 % LAB BASO(LOINC) Basophil 1 0-2 % LAB IGRAN(LOINC) Immature Granulocyte 2 High 0 % LAB ASEG(LOINC) Abs.Neutrophil (Seg) 7.56 1.80-8.00 k/uL LAB ALYM(LOINC) Abs. Lymph 2.04 1.20-5.20 k/uL LAB AMONO(LOINC) Abs. Monocyte 0.66 0.10-1.40 k/u L LAB AEO(LOINC) Abs. Eosinophil 0.10 0.00-0.44 k/uL LAB ABASO(LOINC) Abs. Basophil 0.08 0.00-0.20 k/u L LAB AIGRAN(LOINC) Abs.Imm.Granul ocyte 0.16 0.00-0.30 k/uL LAB HBS(LOINC) Hep B Surf Ag NONREACTIVE NR LAB CATHY(LOINC) Rubella Ab, IgG 55.2 IU/mL Result Comment: <10 NON REACTIVE Negative for Anti-Rubella IgG >=10 REACTIVE Positive for Anti Rubella IgG The presence of IgG antibody to Rubella virus is an indication of previous exposure either by prior infection or vaccination. LAB TREPG(LOINC) T.pallidum Ab Screen NONREACTIVE NR Result Comment: T. pallidum antibodies are not detected. There is no serological evidence of infection with T. pallidum (early primary syphilis cannot be excluded). Retest in 2-4 weeks if syphilis is clinically suspect. Performed By: #### PRENAT ## ## [facility] [address] [place] [address] Merchandise Supervisor: Timur German MD [facility] [address] [place] [address] Merchandise Supervisor: Mj Rangel MD HEP C AB Collected: 5 9:00 AM Status: F Source: [facility] TYPE CODE TESTS RESULT OUT OF RANGE REFERENCE UNITS LAB AHCV([facility]) Hep C Ab NONREACTIVE NR Result Comment: The hepatitis C procedure used in our laboratory is a Chemiluminescent test specific for three recombinant HCV antigens. A negative anti-HCV result indicates that the antibodies to hepatitis C virus are not present at this time. Individuals with reactive anti-HCV should be considered infected and infectious until proven otherwise. Confirmation of all equivocal or reactive results is recommended by ordering HCV RNA by PCR. Performed By: #### HIVCMB, A HCV, GLYHGB #### [facility] [address] [place] [address] Merchandise Supervisor: Timur German MD HIV AG/AB Collected: 9:00 AM Status: F Source: [facility] TYPE CODE TESTS RESULT OUT OF RANGE REFERENCE UNITS LAB CMBHIV([facility]) HIV Ag/Ab NONREACTIVE NR Result Comment: No laborator y evidence of HIV infection. If acute HIV infection is suspected, consider testing for HIV-1 RNA. Performed By: #### HIVCMB, A HCV, GLYHGB #### [facility] [address] [place] [address] Merchandise Supervisor: Timur German MD HEMOGLOBIN A1C Collected: 04/07/2024 9:00 AM Status: F Source: [facility] TYPE CODE TESTS RESULT OUT OF RANGE REFERENCE UNITS LAB PA1CM([facility]) Hemoglobin A1C 4.7 4.0-6.0 % LAB EAG([facility]) Estimated Ave Gluc 88 mg/dL Result Comment: The ADA and AACC recommend providing the estimated average glucose result to permit better patient understanding of their HBA1c result. Performed By: #### HIVCMB, A HCV, GLYHGB #### [facility] [address] [place] [id number] Merchandise Supervisor: Timur German MD URINE CULTURE Observed: 12/11/2023 6:30 PM Status: F Source: [facility] ORGANISM: Klebsiella pneumon iae (O:KLEPNE) [place] Count >100,000 Aerobic MARY GRACE Charge (NMIC56) SUSCEPTIBILITY ORGANISM: O:KLEPNE ANTIBIOTIC INTERPRETATION MARY GRACE Amikacin S <16 Amoxacillin/K Clavulanate S <8 Ampicillin/Sulbactam S 88/4 Aztreonam S <4 Cefazolin S <2 Cefepime S <2 Ceftazidime S <1 Ceftazidime/Avibactam S <4 Ceftolozane/Tazobactam S <2 Ceftriaxone S <1 Cefuroxime S <4 Ciprofloxacin S <0.25 Ertapenem S <0.5 Gentamicin S <2 Levofloxacin S <0.5 Meropenem S <1 Meropenem/Vaborbactam S <2 Nitrofurantoin I 64 Piperacillin/Tazobactam S <8 Tetracycline S <4 Tigecycline S <2 Tobramycin S <2 Trimethoprim/Sulfamethoxazole S <0.5 S = SUSCEPTIBLE I = INTERMEDIATE R = RESISTANT BLANK = DATA NOT AVAILABLE, OR DRUG NOT ADVISABLE OR TESTED R* = RESISTANCE DUE TO EXTENDED SPECTRUM BETA-LACTAMASES ESBL = EXTENDED SPECTRUM BETA-LACTAMASE TFG = THYMIDINE-DEPENDENT STRAIN SHILA = BETA-LACTAMASE POSITIVE IB = INDUCIBLE BETA-LACTAMASE. APPEARS IN PLACE OF 'S' WITH SPECIES KNOWN TO POSSESS INDUCIBLE BETA-LACTAMASES. POTENTIALLY THEY MAY BECOME RESISTANT TO ALL B-LACTAM DRUGS. PERFORMED BY: [place] [address] PATHOLOGIST OPTICAL INSTRUMENT ASSEMBLER SALMA COOK M.D. Performed By: #### CUU #### [place] [address] [place] ALLERGIES No Allergies Records Found ENCOUNTERS ADMIT/DISCHARGE ACCOUNT NUMBER ADMITTING ENCOUNTER CLASS LOCATION SOURCE 07/03/2024/07/04/19 [id number] Ambulatory Building:[facility] 06/15/2024/06/16/19 [id number] [facility] 06/14/2024/06/15/19 [id number] Emergency Building:RED Room: 14Bed: 14 [facility] 06/14/2024/06/15/19 [id number] Elina Worthington [facility]TR[facility]: [facility] 06/09/2024/06/10/19 [id number] Cristofer Hamilton [facility]/06/09/19 [id number] Ambulatory Building:[facility] 06/05/2024/04/18/20 25 [id number] Ambulatory Building:[facility] 05/29/2024/05/30/19 [id number] Ambulatory Building:NOM S SWS [facility] 05/27/2024/05/28/19 [id number] Ambulatory Building:[facility] 05/19/2024/05/20/19 25 [id number] Ambulatory Building:[facility] 05/11/2024/05/12/19 25 [id number] Ambulatory Building:[facility] 04/22/2024/04/23/19 25 [id number] Ambulatory Building:NOM S SH [facility] 04/07/2024/04/07/19 [id number] Ambulatory Building:[facility] 12/11/2023/12/11/19 24 [id number] Marian Garcia [facility] PAYERS ENCOUNTER GUARANTOR PAYER SUBSCRIBER SOURCE 07/03/2024 DAX GOODWINB: [address] [place] [address]Mlr: () Primary Insurance:[facility] PLANPolicy Number: [id number] Date:2024-04-18[address] [place] [address]LX: DAX GOODWINB: [id number], [place] [address]Jvv: (HP) [facility] 06/15/2024 D[address] My[address], [place] [address]Lfr: () Primary Insurance:Self PayPolicy Number: Effective Date:2024-06-15 [facility] 06/14/2024 DAX GOODWINB: [address], [place] [address]Xfj: (HP) Primary Insurance:[facility] PLANPolicy Number: [id number] Date:2024-04-18[address] [place] [address]UT: DAX ROSARIOB: [id number], [place] [address]Zzp: (HP) [facility] 06/14/2024 Dax Lanier [id number], [place] [address]Rhz: (HP) Primary Insurance:[place] MedicaidPolicy Number: [id number] Date:0280-12-50AG [address] [place] [address] [place] [address]VT: Dax Lanier AlonmaricelanthonyDOB: [id number], [place] [address]Xaj: () [facility] 06/14/2024 Secondary Insurance:Self PayPolicy Number: Effective Date:2024-06-14 [facility] 06/09/2024 Dax Chicott[address], [place] [address]Lce: () Primary Insurance:[place] MedicaidPolicy Number: [id number] Date:[id number] [address]MU: Dax Lanier AlonmaricelttDOB: [id number], [place] [address]Xhs: () [facility] 06/09/2024 Secondary Insurance:Self PayPolicy Number: Effective Date:2024-06-09 NOT GIVENUNK [facility] 06/08/2024 DAX CHRISTAB: [id number], [place] [address]Ygn: (HP) Primary Insurance:[employer] MEDICAIDPoly Number: [id number] Date:2024-04-18 DAX GOODWINB: [id number], [place] [address] [facility] 06/05/2024 DAX ROSARIODOB: [address], [place] [address]Des: (HP) Primary Insurance:[facility] Number: [id number] Date:2024-04-18[address] [address]VG: DAX ROSARIODOB: [id number], [place] [address]Eji: (HP) [facility] 05/29/2024 DAX ROSARIODOB: [address], [place] [address]Akd: (HP) Primary Insurance:[employer] [employer] MEDICAIDPolicy Number: [id number] Date:2024-04-18 DXA GOODWINB: [id number], [place] [address] [facility] 05/27/2024 DAX ROSARIODOB: [address], [place] [address]Ppg: (HP) Primary Insurance:[facility]Policy Number: [id number] Date:2024-04-18[address] [address]RN: DAX ROSARIODOB: [id number], [place] [address]Wfq: (HP) [facility] 05/19/2024 DAX GOODWINB: [address], [place] [address]Irs: (HP) Primary Insurance:[facility]Policy Number: [id number] Date:2024-04-18[address] [place] [address]HC: DAX ROSARIODOB: [id number], [place] [address]Mvh: (HP) [facility] 05/11/2024 DAX ROSARIODOB: [address], [place] [address]Sbd: (HP) Primary Insurance:[facility]Policy Number: [id number] Date:2024-04-18[address], [place] [address]MY: DAX ROSARIODOB: [id number], [place] [address]Bxw: () [facility] 04/22/2024 DAX GOODWINB: [address], [place] [address]Otz: () [place] Insurance[place]ID [place] Number: [id number] Date:2024-03-21 DAX ROSARIOB: [id number], [place] [address] [facility] 04/22/2024 Secondary Insurance:[employer] MEDICAIDPolicy Number: [id number] Date:2024-04-18 DAX MYERSVIVIANEB: [id number], [place] [address] [facility] 04/07/2024 DAX MYERSVIVIANEB: [id number], [place] [address]Anj: (HP) [place] Insurance:[place] Number: [id number] Date:2024-03-21[address], [place] [address]QO: DAX GOODWINB: [id number] [facility] [address], [place] [address]Wll: (HP) [facility] 12/11/2023 Dax Shens[address] [facility] [address], [place] [address]Uzl: (HP) Primary Insurance:MMOPolicy Number: [id number] Date:1437-42-82FS [id number] [place] [address]ZK: Crystal RamonOB: [id number] [address]Ckg: (HP) [facility] 12/11/2023 Secondary Insurance:Self PayPolicy Number: Effective Date:2023-12-11 NOT GIVEN[facility]
--- OUTSIDE RECORDS SUMMARY | 2024-07-09 05:00 | XMS_ITS ---
Author Organization [facility] PaySimple es Address [address] [place] [address] Care Team Providers Care Boat Master Name Role Phone Norma Bernal Primary Care Provider Paula Sehikh Unavailable [phone] Allergies Allergen (clinical drug ingredient) Drug/Non Drug Allergy documented on EMR Reaction Allergy Type Onset Date Status promethazine Promethazine Unknown Drug Allergy A ctive Substance with sulfonamide structure and antibacterial mechanism of action (substance) Sulfa Antibiotics hives Drug Allergy Active REASON FOR VISIT F/U OF UPPER RESPIRATORY INF Medications Medication SIG (Take, Route, Frequency, Duration) Notes Start Date End Date Status Albuterol Sulfate HFA 108 (90 Base) MCG/ACT 2 puff as needed Inhalation every 4 hrs for 30 days 06/05/2024 Active Breztri Aerosphere 160-9-4.8 MCG/ACT 2 puffs Inhalation Twice a day for 10 days pt needs 1 inhaler per month 07/09/2024 09/07/2024 Active ARIPiprazole 15 MG 1 tablet Orally Once a day for 30 days increased dosage; disregard the 10mg refills please 02/26/2024 Active FLUoxetine HCl 40 MG 1 capsule Orally Once a day 02/26/2024 Active QUEtiapine Fumarate 25 MG 1 tablet at bedtime Orally Once a day for 30 days new medication. stopping Olanzapine 05/26/2024 Not-Taking Ipratropium-Albutero l 20-100 MCG/ACT 1 puff as needed Inhalation every 6 hrs for 7 days 06/01/2024 Active Symbicort 160-4.5 MCG/ACT 2 puffs Inhalation once a day for 30 days 06/05/2024 10/03/2024 Active Nebulizer/Tubing/Joann thpiece - as directed with breathing treatment for 30 days 07/09/2024 Active Cetirizine HCl 10 MG 10 ML Orally Once a day for 30 days 07/09/2024 Active Omeprazole 40 MG 1 capsule 1/2 to 1 hour before morning meal Orally Once a day Active 28-0.8 MG 1 tablet Orally Once a day Active Levothyroxine Sodium 50 MCG TAKE 1 TABLET BY MOUTH EVERY DAY Oral for 30 Days Active Albuterol Sulfate (2.5 MG/3ML) 0.083% 3 mL as needed Inhalation every 6 hrs for 30 days 07/09/2024 Active Social History Tobacco Use: Social History Observation Description Date Details (start date - stop date) Never Smoker NA - NA Sexual Hx: Question Answer Notes Had sex in the last 12 months (vaginal, oral, or anal)? Yes with Men only Use protection? No Have you ever had an STD? No LMP: 02/06/2024 Depression Screening (PHQ-9): Question Answer Notes Little interest or pleasure in doing things Several days Feeling down, depressed, or hopeless More than h rene the days Trouble falling or staying a sleep, or sleeping too much Several days Feeling tired or having little energy Nearly brynn ry day Poor appetite or overeating Several days Feeling bad about yourself-o r that you are a failure or have let yourself or your family down More than half the days Trouble concentrating on thi ngs, such as reading the newspaper or watching television Several days Moving or speaking so slowly that other people could have noticed. Or the opposite being so fidgety or restless that you have been moving around a lot more than usual Not at all Thoughts that you would be b renee off , or of hurting yourself in some way Several days(Consider Suicide Assessment Risk) Total Score 12 Intepretation Moderate Depression AUDIT-C (Standard) Question Answer Notes Did you have a drink containing alcohol in the p ast year? No Points 0 Interpretation Negative Tobacco Control (Standard) Question Answer Notes Tobacco use: Nonsmoker Problems Problem Type SNOMED Code ICD Code Onset Dates Problem Status W/U Status Risk Notes Problem 610584301 Severe persisten t asthma with acute exacerbation (J45.51) Active confirmed Vital Signs Height 61 in 07/09/2024 Weight 302 lbs 07/09/2024 BMI 57.06 kg/m2 07/09/2024 Temperature 98 degrees Fahrenheit 07/09/2024 Blood pressure systolic 122 mm Hg 07/10/19 25 Blood pressure diastolic 82 mm Hg 025 Oximetry 99 % 07/09/2024 Heart Rate 99 /min 07/09/2024 Encounters Encounter Location Date Provider Diagnosis [facility] [address] [place] [address] 07/09/2024 Norma Bernal Severe persistent as thma with acute exacerbation J45.51 Assessments Encounter Date Diagnosis (ICD Code) Assessment Notes Treatment Notes Treatment Clinical Notes Section Notes 07/09/2024 Severe persistent asthma with acute exacerbation (ICD-10 - J45.51) Switched patient to Breztri since patient is not getting any relief from the Symbicort. Pt also received nebulizer since she is not getting as much relief from rescue inhaler due to severity of condition. Patient will start these medications as we discussed and see if they help. Gave liquid version of medication to help with nausea due to 07/09/2024 Other Body Mass Index : Care Instructions material was published, Body Mass Index: Care Instructions material was printed Plan Of Treatment Medication Medication Name Sig Start Date Stop Date Notes Breztri Aerosphere 160-9-4.8 MCG/ACT 2 puffs Inhalation Twice a day for 10 days 07/09/2024 09/07/2024 pt needs 1 inhaler per month Nebulizer/Tubing/Mouth piece - as directed with breathing treatment for 30 days 07/09/2024 Cetirizine HCl 10 MG 10 ML Orally Once a day for 30 days 07/09/2024 Albuterol Sulfate (2.5 MG/3ML) 0.083% 3 mL as needed Inhalation every 6 hrs for 30 days 07/09/2024 Treatment Notes Assessment Notes Severe persistent asthma wit h acute exacerbation Switched patient to Breztri since patien t is not getting any relief from the Symbicort. Pt also received nebulizer since she is not getting as much relief from rescue inhaler due to severity of condition. Patient will start these medications as we discussed and see if they help. Gave liquid version of medication to help with nausea due to Other Body Mass Index: Car e Instructions material was published, Body Mass Index: Care Instructions material was printed Next Appt Details Follow Up: prn, Reason: Provider Name:Jailyn Murdock Gracie om, 07/31/2024 12:30:00 PM, [address], [place], [address], Provider Name:Paula fullerer, 08/03/2024 08:15:00 AM, [address] [place], [address], Progress Notes * MARLENEDAX DE GUZMAN CDOB: [birth year] (19 yo F)Acc No.[id number]:07/09/2024 Progress Notes Patient: DAX LOVE Provider: Katiuska Bernal CNP :2005 A ge:19 Y S ex:Female Date:07/09/2024 Address:[address] [place] [address] [address], [facility] Subjective: * Chief Complaints: * F /U OF UPPER RESPIRATORY INF * HPI: C onstitutional: Pt here today for URI f/u Pt states she is not any better-steroids did not help or the inhalers Pt states when she coughs she is gasping for air OB put her on med for GERD- Pt feels like something is stuck- right after she is eating Pt states when she wakes up in the morning and she will vomit mucous after coughing spells No refills needed. D epression Screening: PHQ-2 (2015 Edition) L ittle interest or pleasure in doing things??Not at all F eeling down, depressed, or hopeless? N ot at all T otal Score 0 * ROS: G eneral Review of Systems: General D enies fever, chills, weight loss. E yes D enies vision changes, no double vision or blurry vision. . H EENT D enies sore throat, ear pain., Denies fevers , chills, Denies nasal congestion, or pressure, Denies hoarseness, change in voice, difficulty swallowing. C ardiovascular D enies chest pain, palpitations, exertional dyspnea. R espiratory s ee hpi. G astrointestinal D enies abdominal pain, nausea, vomiting, diarrhea, or constipation. Denies blood in stool or changes in bowel habits.. G enitourinary D enies urgency, frequency, dysuria, hematuria. M usculoskeletal D enies joint pain, myalgias. D ermatology D enies rashes or lesions. N eurological D enies any lightheadedness, dizziness, headache, new numbness or tingling in hands or feet. . * Medical History: * OB History: T otal living children 0 . T otal pregnancies 0 . * Surgical History: D enies Past Surgical History * Hospitalization/Major Diagno stic Procedure: I TP age 2 * Family History: F ather: alive. M other: alive. 1 sister(s) - healthy. . * Social History: G eneral: D epression Screening (PHQ-9) L ittle interest or pleasure in doing things?Several days F eeling down, depressed, or hopeless M ore than half the days T rouble falling or staying asleep, or sleeping too much S everal days F eeling tired or having little energy N early every day P oor appetite or overeating S ever F eeling bad about yourself-or that you are a failure or have let yourself or your family down M ore than half the days T rouble concentrating on things, such as reading the newspaper or watching television S everal M oving or speaking so slowly that other people could have noticed. Or the opposite being so fidgety or restless that you have been moving around a lot more than usual N ot at all T houghts that you would be better off , or of hurting yourself in some way S everal (Consider Suicide Assessment Risk) T otal Score 1 2 I ntepretation M oderate Depression Transition of Care E R/UC/hospital since last office visit? N o S pecialist seen since last office visit? N o Behaviors affecting health P oor/Risky Behaviors: D enies- Substance abuse/mental health issues of patient/family P atient - D enies Social/Support Concerns P atient: N o Ability to understand healthcare/treatment P atient: G ood Communication Barrier L anguage Barrier?: N o Sexual Hx H ad sex in the last 12 months (vaginal, oral, or anal)? Y es w ith M en only U se protection? N o H ave you ever had an STD? N o L MP: 1 04/08/2023 D rug/Alcohol: A FAMILIA-C (Standard) D id you have a drink containing alcohol in the past year? N o P oints 0 I nterpretation N egative T obacco Use: T obacco Control (Standard) T obacco use: N onsmoker * Medications: T akingOmeprazole 40 MG Capsule Delayed Release 1 capsule 1/2 to 1 hour before morning meal Orally Once a day 28-0.8 MG Tablet 1 tablet Orally Once a day Levothyroxine Sodium 50 MCG Tablet TAKE 1 TABLET BY MOUTH EVERY DAY Oral Ipratropium-Albuterol 20-100 MCG/ACT Aerosol Solution 1 puff as needed Inhalation every 6 hrs Symbicort 160-4.5 MCG/ACT Aerosol 2 puffs Inhalation once a day , stop date 10/03/2024lbuterol Sulfate HFA 108 (90 Base) MCG/ACT Aerosol Solution 2 puff as needed Inhalation every 4 hrs ARIPiprazole 15 MG Tablet 1 tablet Orally Once a day , Notes to Pharmacist: increased dosage; disregard the 10mg refills pleaseFLUoxetine HCl 40 MG Capsule 1 capsule Orally Once a day Taking Omeprazole 40 MG Capsule Delayed Release 1 capsule 1/2 to 1 hour before morning meal Orally Once a day Taking 28-0.8 MG Tablet 1 tablet Orally Once a day Taking Levothyroxine Sodium 50 MCG Tablet TAKE 1 TABLET BY MOUTH EVERY DAY Oral Taking Ipratropium-Albuterol 20-100 MCG/ACT Aerosol Solution 1 puff as needed Inhalation every 6 hrs Taking Symbicort 160- 4.5 MCG/ACT Aerosol 2 puffs Inhalation once a day , stop date 10/03/2024Taking Albuterol Sulfate HFA 108 (90 Base) MCG/ACT Aerosol Solution 2 puff as needed Inhalation every 4 hrs Taking ARIPiprazole 15 MG Tablet 1 tablet Orally Once a day , Notes to Pharmacist: increased dosage; disregard the 10mg refills pleaseTaking FLUoxetine HCl 40 MG Capsule 1 capsule Orally Once a day Not-Taking/PRNQUEtiapine Fumarate 25 MG Tablet 1 tablet at bedtime Orally Once a day , Notes to Pharmacist: new medication. stopping OlanzapineNot-Taking/PRN QUEtiapine Fumarate 25 MG Tablet 1 tablet at bedtime Orally Once a day , Notes to Pharmacist: new medication. stopping OlanzapineDiscontinuedCombivent Respimat 20-100 MCG/ACT Aerosol Solution INHALE 1 PUFF BY MOUTH EVERY 6 HOURS NEEDED FOR 7 DAYS Inhalation Medication List reviewed and reconciled with the patientDiscontinued Combivent Respimat 20-100 MCG/ACT Aerosol Solution INHALE 1 PUFF BY MOUTH EVERY 6 HOURS NEEDED FOR 7 DAYS Inhalation Medication List reviewed and reconciled with the patient * Allergies: P romethazineSulfa Antibiotics: hivesno[Allergies Verified] Objective: * Vitals: H t: 61 in, Wt: 302 lbs, BMI:57.06Index, Temp: 98 F, BP: 122/82 mm Hg, SaO2:99%, HR: 99 /min. * Examination: G eneral Examination: GENERAL APPEARANCE: A lert and oriented , in no acute distress , mildly ill appeariing,. FACE: n o frontal or maxillary sinus tendernss. EYES: n o discharge, no nystagmus, pupils, equal, round, reactive to light and accomodation (PERRLA). HEENT: P ND present, clear nasal drainage. ORAL CAVITY: u nremarkable. NECK/THYROID: C ervical lymph nodes: enlarged, tender. CARDIOVASCULAR: r egular rate and rhythm. CHEST: e xpiratory and inspiratory wheezes. Pain to sternal wall with cough. RESPIRATORY: c ough. GASTROINTESTINAL: A bdomen Soft. Assessment: * Assessment: 1. S evere persistent asthma with acute exacerbation - J45.51 (Primary) Plan: * Treatment: 2. O thers Notes: Body Mass Index: Care Instructions material was published, Body Mass Index: Care Instructions material was printed * Procedure Codes: 3 079F DIAST BP 80-89 MM [id number] SYST BP LT 130 MM [id number] RVW MEDS BY RX/ IN RD * Preventive Medicine: COUNSELING: C ommunication to patient: Counseling for Nutrition Provided Y es Counseling for Physical Activity Provided Y es BMI management provided Y es Nutrition/Dietary Counseling provided?Yes * Follow Up: p rn * Images: * Sign off status: Completed true * Provider: Katiuska Bernal CNP Date: 0 07/09/2024 Generated for Shell marcano/Alesha/Pilar on: 0 07/10/2024 01:16 PM EDT History and Physical Notes * HPI (History of Present Illness) Category Sub-Category Detail Notes Category Not es Depression Screening PHQ-2 (2015 Edition) Little interest or pleasure in doing things?: Not at all Feeling down, depressed, or hopeless?: N ot at all Total Score: 0 Examination Category Sub-Category Detail Notes Category Not es General Examination HEENT: PND present, clear na claudy drainage NECK/THYROID: Cervical lymph nodes : enlarged, tender CARDIOVASCULAR: regular rate and rhy thm RESPIRATORY: cough GASTROINTESTINAL: Abdomen Soft GENERAL APPEARANCE: Alert and oriented , in no acute distress , mildly ill appeariing, ORAL CAVITY: unremarkable CHEST: expiratory and inspi ratory wheezes. Pain to sternal wall with cough DIABETIC FOOT EXAM Monofilament: normal FACE: no frontal or maxill jim sinus tendernss EYES: no discharge, no nys tagmus, pupils, equal, round, reactive to light and accomodation (PERRLA)
[2024-07-10] VITALS (13 sets, daily range): BP systolic 102–128; BP diastolic 75–88; PULSE 112–132; TEMP 36.8–37.5; O2SAT 98–100; BMI 61.2
--- OUTSIDE RECORDS SUMMARY | 2024-07-10 08:15 | XMS_ITS | Encounter Summary ---
Author Organization [facility] Address [address] [place] [address] Care Team Providers Care Top Inventory Control Executive Name Role Phone Norma Bernal APRN, NP Primary Care Provid er Encounter Details Date Type Department Care Team (Late st Contact Info) Description 07/10/2024 8:15 AM EDT Hospital Encounter [facility] [address] [place], [place] [id number] Barry Taylor, PT Social History Tobacco Use Types Packs/Day Years Used Date Smoking Tobacco: Never Smokeless Tobacco: Never Alcohol Use Standard Drinks/Week Comments No 0 (1 standard drink = 0.6 oz pur e alcohol) [facility] Utilities Answer Date Recorded In the past 12 months has [facility] [employer], gas, oil, or water [employer] threatened to shut off services in your [...] money to buy more. Never true 03/28/19 23 Within the past 12 months, t he [...] place to sleep or slept in a usp (including now)? No 03/28/2022 Housing Stability Vital Sign Answer Marvin e Recorded Unable to Pay for Housing in the Last Year Not o n file 04/21/2024 In the past 12 months, how m any times have you moved where you were living? 0 04/21/2024 At any time in the past 12 m ont, were you homeless or living in a usp (including now)? No 04/21/2024 Food Insecurity Answer [...] on file documented as of this encounter Progress Notes * Yas Ferrara - 07/10/2024 8:15 AM EDT Physical Therapy [facility] Inpatient/Observation/Outpatient Rehabilitation Date: 07/10/2024 Patient Name: Louise Rosario [] Inpatient Acute/Observation [x] Outpatient : 2003 08/14/24 Plan of Care/Recert ends [] Pt refused/declined therapy at this time due to: [x] Pt cancelled due to: [] No Reason Given [] Sick/ill [x] Other: family emergency [] Evaluation held by RN/Provider/Physical Therapist due to: [] High Heart Rate [] High Blood Pressure [] Orthopedic Consult [] Hgb < 7 [] Other: [] Pt ordered brace per physician request: [] Proper fit will be completed and education for wearing/skin checks [] Pt does not require skilled services due to: Therapist/Patrol Captain will attempt to see this patient, at our earliest opportunity. Yas Ferrara Date: 07/10/2024 Cosigned by Barry Taylor PT at 07/10/2024 8:16 AM EDT documented in this encounter Plan of Treatment Upcoming Encounters Date Type Department Care Team (Late st Contact Info) Description 07/20/2024 8:00 AM EDT Ancillary Procedure [facility] Part [address] [place] [address] OB 20 wk US 07/20/2024 9:00 AM EDT Routine [facility] [address] [place] [address] Cecy Guadalupe, FEDERICO - [place] [address] [place] [address] Dr [address] [place] [address] OB 20 wk US 09/28/2024 8:30 AM EDT Ancillary Procedure [facility] [address] [place] [address] ANTELMO 12/0609/28/2024 9:00 AM EDT Routine [facility] [address] [place] [address] Cecy Guadalupe, EKG MONITOR - [place] [address] [place] [address] Dr [address] [place] [address] ANTELMO 12/06 documented as of this encounter Visit Diagnoses Not on filedocumented in this encounter Care Teams Top Inventory Control Executive Relationship Specialty Start Date End Date Norma Bernal APRN - MAILE [address] [place], [place] [address]vira [place] [address] PCP - General Family Medicine 05/27/24 documented as of this encounter
--- OUTSIDE RECORDS SUMMARY | 2024-07-10 13:16 | XMS_ITS | Encounter Summary ---
Author Organization [facility] Address [address] [place] [address] Care Team Providers Care Raking Machine Operator Name Role Phone Norma Bernal APRN - MAILE Primary Care Provid er Encounter Details Date Type Department Care Team (Late st Contact Info) Description 06/19/2021 Transcribe Orders [facility] [address] [place] [address] Kirby Murry MD [address] [place] [address] Dysmenorrhea (Primary Dx) Social History Tobacco Use Types Packs/Day Years Used Date Smoking Tobacco: Never Smokeless Tobacco: Never Alcohol Use Standard Drinks/Week Comments No 0 (1 standard drink = 0.6 oz pur e alcohol) Overall Financial Resource Strain (CARDIA) Answe r Date Recorded How hard is it for you to pa y for the very basics like food, housing, medical care, and heating? Not hard at all 05/15/2021 PHQ-2 Answer Date Recorded PHQ-9 Total Score 0 05/15/2021 Hunger Vital Sign Answer Date Recorded Within the past 12 months, y ou worried that your food would run out before you got the money to buy more. Never true 05/16/19 22 Within the past 12 months, t he food you bought just didn't last and you didn't have money to get more. Never true 05/15/2021 Comments No Sex and Gender Information Value Date Recorded Sex Assigned at Female 03/28/2022 12:08 PM EST Legal Sex Female 4:23 PM EST Gender Identity Female 03/28/2022 12:08 PM EST Sexual Orientation Not on file documented as of this encounter Plan of Treatment Upcoming Encounters Date Type Department Care Team (Late st Contact Info) Description 07/20/2024 8:00 AM EDT Ancillary Procedure [facility] [address] [place] [address] OB 20 wk US 07/20/2024 9:00 AM EDT Routine [facility] [address] [place] [address] Cecy Guadalupe, OPTOMETRIC TECH - CNM [address] [place] [address] Dr [address] [place] [address] OB 20 wk US 09/28/2024 8:30 AM EDT Ancillary Procedure [facility] [address] [place] [address] ANTELMO 12/0609/28/2024 9:00 AM EDT Routine [address] [place] [address] Cecy Guadalupe, OPTOMETRIC TECH - CNM [address] [place] [address] Dr [address] [place] [address] ANTELMO 12/06 documented as of this encounter Visit Diagnoses Diagnosis Dysmenorrhea- Primary documented in this encounter Care Teams Raking Machine Operator Relationship Specialty Start Date End Date Norma Bernal APRN - [place] [phone] PCP - General Family Medicine 05/27/24 documented as of this encounter
--- OUTSIDE RECORDS SUMMARY | 2024-07-10 13:16 | XMS_ITS | Encounter Summary ---
Author Organization [facility] Address [address] [place] [address] Care Team Providers Care Washing Tub Operator Name Role Phone Norma Bernal APRN, NP Primary Care Provid er Encounter Details Date Type Department Care Team (Late st Contact Info) Description 06/16/2021 Transcribe Orders [facility] [address] [place] [address] Kirby Murry MD [facility] [place] [address] Social History Tobacco Use Types Packs/Day Years [...] Description 07/20/2024 8:00 AM EDT Ancillary Procedure [facility] [address] [place] [address] OB 20 wk US 07/20/2024 9:00 AM EDT Routine [facility] [address] [place] [address] Cecy Guadalupe, FEDERICO - [place] [address] [place] [address] Dr [address] [place] [address] OB 20 wk US 09/28/2024 8:30 AM EDT Ancillary Procedure [facility] [address] [place] [address] ANTELMO 12/0609/28/2024 9:00 AM EDT Routine [facility] [address] [place] [address] Cecy Guadalupe, INCLUSION SPECIAL EDUCATION TEACHER - [place]NI[place] [address] [place] [address] Dr aHrry [address] [place] [address] ANTELMO 12/06 documented as of this encounter Visit Diagnoses Not on filedocumented in this encounter Care Teams Washing Tub Operator Relationship Specialty Start Date End Date Norma Bernal APRN - [place] [address] PCP - General Family Medicine 05/27/24 documented as of this encounter
--- OUTSIDE RECORDS SUMMARY | 2024-07-10 13:17 | XMS_ITS | Encounter Summary ---
Author Organization [facility] Address [address] [place] [address] Care Team Providers Care Writer Technical Publications Name Role Phone Norma Bernal APRN, NP Primary Care Provid er Reason for Visit * Reason Comments Medication Refill Encounter Details Date Type Department Care Team (Late st Contact Info) Description 07/24/2020 Refill [facility] [address] [place] [address] Kaleigh Kim, DO [address] [place] [address] Medication Refill Social History Tobacco Use Types Packs/Day Years [...] care, and heating? Not hard at all 05/13/2020 PHQ-2 Answer Date Recorded PHQ-9 Total Score 4 05/13/2020 Hunger Vital Sign Answer Date Recorded Within the past 12 months, y ou worried that your food would run out before you got the money to buy more. Never true 05/14/19 21 Within the past 12 months, t he food you bought just didn't last and you didn't have money to get more. Never true 05/13/2020 Comments No Sex and Gender Information Value Date Recorded Sex Assigned at Female 03/28/2022 12:08 PM EST Legal Sex Female 4:23 PM EST Gender Identity Female 03/28/2022 12:08 PM EST Sexual Orientation Not on file documented as of this encounter Plan of Treatment Upcoming Encounters Date Type Department Care Team (Late st Contact Info) Description 07/20/2024 8:00 AM EDT Ancillary Procedure [facility] Part [address] [place] [address] OB 20 wk US 07/20/2024 9:00 AM EDT Routine [facility] [address] [place] [address] Cecy Guadalupe, FEDERICO - [place] [address] [place] [address] Dr [address] [place] [address] OB 20 wk US 09/28/2024 8:30 AM EDT Ancillary Procedure [facility] Part [address] [place] [address] ANTELMO 12/0609/28/2024 9:00 AM EDT Routine [facility] [address] [place] [address] Cecy Guadalupe, ASSEMBLER [employer] - [place] [address] [place] [address] Dr [address] [place] [address] ANTELMO 12/06 documented as of this encounter Visit Diagnoses Not on filedocumented in this encounter Additional Health Concerns Infection Onset Date Last Indicated Resolved Time COVID-19 (Rule Out) 05/15/2021 05/15/2021 05/16/19 22 10:59 AM EDT documented as of this encounter Care Teams Writer Technical Publications Relationship Specialty Start Date End Date Norma Bernal APRN - [place] [phone] PCP - General Family Medicine 05/27/24 documented as of this encounter
--- OUTSIDE RECORDS SUMMARY | 2024-07-10 13:17 | XMS_ITS | Encounter Summary ---
Author Organization [facility] Address [address] [place] [address] Care Team Providers Care Benefit Authorizer Name Role Phone Norma Bernal APRN, NP Primary Care Provid er Reason for Visit * Reason Comments Medication Refill Encounter Details Date Type Department Care Team (Late st Contact Info) Description 06/26/2020 Refill [facility] [address] [place] [address] Kaleigh Kim, DO [address] [place] [address] Medication Refill Social History Tobacco [...] Description 07/20/2024 8:00 AM EDT Ancillary Procedure [facility]ECOLOG[facility] Part [address] [place] [address] OB 20 wk US 07/20/2024 9:00 AM EDT Routine [facility] [address] [place] [address] Cecy Guadalupe, FEDERICO - [place] [address] [place] [address] Dr [address] [place] [address] OB 20 wk US 09/28/2024 8:30 AM EDT Ancillary Procedure [facility]ECOLOG[facility] Part [address] [place] [address] ANTELMO 12/0609/28/2024 9:00 AM EDT Routine [facility] [address] [place] [address] Cecy Guadalupe, ELECTROCARDIOGRAM TECHNICIAN - [place] [address] [place] [address] [address] [place] [address] ANTELMO 12/06 documented as of this encounter Visit Diagnoses Not on filedocumented in this encounter Additional Health Concerns Infection Onset Date Last Indicated Resolved Time COVID-19 (Rule Out) 05/15/2021 05/15/2021 05/16/19 22 10:59 AM EDT documented as of this encounter Care Teams Benefit Authorizer Relationship Specialty Start Date End Date Norma Bernal [place] [phone] PCP - General Family Medicine 05/27/24 documented as of this encounter
--- OUTSIDE RECORDS SUMMARY | 2024-07-10 13:18 | XMS_ITS | Clinical Summary ---
Author Organization Jennifer Abernathy [facility] Address [address] [place] [address] Care Team Providers Care Trim Stencil Maker Name Role Phone Norma Bernal APRN - MAILE Primary Care Provid er Allergies Active Allergy Reactions Criticality Noted Date Comments Promethazine Other (See Comments) 04/23/2018 Hallucinations, anxiety Sulfa Antibiotics Hives Low 04/08/2018 Medications FLUoxetine (PROZAC) 20 MG capsule take 1 capsule by mouth once daily 30 capsule 1 4 Active Vit-Fe Fumarate-FA ( PO) Take by mouth Ac tive OLANZapine (ZYPREXA) 2.5 MG tablet every 24 hours 5 Active levothyroxine (SYNTHROID) 50 MCG tablet Take 1 tablet by mouth Daily Active albuterol sulfate HFA (PROVENTIL;PORTIA GRETA;PROAIR) 108 (90 Base) MCG/ACT inhaler 2 puff as needed Inhalation every 4 hrs for 30 days 5 Active amoxicillin (AMOXIL) 500 MG capsule 5 Active ARIPiprazole (ABILIFY) 10 MG tablet Take 1 tablet by mouth daily 5 Active SYMBICORT 160-4.5 MCG/ACT AERO 2 puffs Inhalation once a day for 30 days 5 10/04/19 25 Active cephALEXin (KEFLEX) 500 MG capsule Cephalexin 500 mg capsule Active 500 MG PO Twice daily 14 7 December 11, 2023 12:00am 4 Active omeprazole (PRILOSEC) 40 MG delayed release capsuleIndicatio ns:Gastroesophag eal reflux disease without esophagitis Take 1 capsule by mouth every morning (before breakfast) 30 capsule 5 5 Active Active Problems Patient Care Coordination No te Formatting of this note migh t be different from the original. HX: Hypothyroidism, Anxiety, Depression, OCD, BMI 57. [facility] risk assesment form = Yes Does pt have history of infant delivery before 37 weeks? No testing = Desires NIPT Ped =undecided Blood type = 1 hr GTT= Rhogam? = Flu shot = TDAP (27-36 wks)= GBS = Problem Noted Date Diagnosed Date PCOS (polycystic ovarian syndrome) 03/09/2022 Vertigo 09/28/2020 Tinnitus of both ears 09/28/2020 Obsessional thoughts 08/07/2020 Estimated Date of Delivery Comme nts Yes 12/06/2024 Based on Ultraso und Resolved Problems Problem Noted Date Diagnosed Date Resolved Date Thought disorder 05/17/2018 08/07/2020 Overview (08/07/2020): OCD with pervasive thoughts Encounters Date Type Department Care Team Description 07/10/2024 8:15 AM EDT Hospital Encounter [facility] Physical Therapy [address] [place] [address] Barry Taylor, PT 07/03/2024 8:00 AM EDT - 07/03/2024 11:59 PM EDT Hospital Encounter [facility] Physical Therapy [address] [place] [address] Barry Griffith, PT Discharge Disposition: Home or Self Care 06/24/2024 11:30 AM EDT Ancillary Procedure [facility] Part of [address] [place] [address] Fall at home, initial encounter; 16 weeks gestation of 06/23/2024 8:30 AM EDT Routine [facility] Part [address] [place] [address] Guadalupe, CecyFEDERICO Schulte CNM 16 weeks gestation of (Primary Dx); Encounter for supervision of normal first in second trimester; Morbid obesity (HCC); Other back pain, unspecified chronicity; Gastroesophageal reflux disease without esophagitis; Chronic cough 06/14/2024 10:29 PM EDT - 06/14/2024 11:57 PM EDT Emergency [facility] Emergency Department [address] [place] [address] Discharge Disposition: LWBS after tearoom host 06/14/2024 Travel 06/11/2024 Results Follow-Up [facility] Obstetrics and Gynecology [address] [place] [address] [place] [address] Cecy Guadalupe APRN - CNM 06/05/2024 8:52 AM EDT - 06/05/2024 11:59 PM EDT Hospital Encounter [address] [address] Discharge Disposition: Home or Self Care 06/04/2024 Orders Only [facility] [place] [id number] Cecy Guadalupe APRN - CNM Encounter for supervision of normal first in second trimester (Primary Dx); 13 weeks gestation of 06/04/2024 Telephone [facility] [address] [address] Cecy Bills APRN - BRENNAN Jolley 06/04/2024 Orders Only [facility] [address] [address] Blanca Guadalupe LPN 12 weeks gestation of 05/27/2024 1:16 PM EDT - 05/27/2024 11:59 PM EDT Hospital Encounter [address] [address] Discharge Disposition: Home or Self Care 05/27/2024 1:00 PM EDT Routine [facility] Part [address] [address] 12 weeks gestation of (Primary Dx) 05/27/2024 Results Follow-Up [facility] Obstetrics and Gynecology [address] [place] [address] Cecy Guadalupe, WEIGH TANK OPERATOR - CNM 05/26/2024 Results Follow-Up [facility] Obstetrics and Gynecology [address] [place] [address] [place] [address] Cecy Guadalupe, WEIGH TANK OPERATOR - CNM 05/22/2024 Telephone [facility] Part of [address] [place] [address] Cecy Guadalupe, WEIGH TANK OPERATOR - CNM 05/22/2024 Telephone [facility] Part of [address] [place] [address] Cecy Guadalupe, WEIGH TANK OPERATOR - CNM 05/22/2024 Telephone [facility] Part of [address] [place] [address] Cecy Guadalupe, WEIGH TANK OPERATOR - CNM 05/22/2024 Telephone [facility] Part of [address] [place] [address] Cecy Guadalupe, WEIGH TANK OPERATOR - CNM 05/21/2024 Abstract [facility] Part of [address] [place] [address] Blanca Guadalupe LPN 05/20/2024 Orders Only [facility] Part of [address] [place] [address] Blanca Guadalupe LPN 10 weeks gestation of 05/19/2024 10:51 AM EDT - 05/19/2024 11:59 PM EDT Hospital Encounter [facility] [address] [place] [address] [place] [address] Screening for malignant neoplasm of cervix Discharge Disposition: Home or Self Care 05/19/2024 10:30 AM EDT Ancillary Procedure [facility] Part of [address] [place] [address] Ultrasound scan done for inability to hear heart tones; 11 weeks gestation of 05/19/2024 9:45 AM EDT Routine [facility] Part [address] [place] [address] Cecy Guadalupe APRN - CNM 12 weeks gestation of (Primary Dx); Screening for malignant neoplasm of cervix; Encounter for supervision of normal first in first trimester; Hypothyroidism, unspecified type; BMI 50.0-59.9, adult (HCC); Obsessive-compulsive disorder, unspecified type; Anxiety and depression 05/11/2024 9:46 AM EDT - 05/11/2024 11:59 PM EDT Hospital Encounter [facility] [address] [place] [address] Discharge Disposition: Home or Self Care 05/11/2024 9:00 AM EDT Routine [facility] [address] [place] [address] 10 weeks gestation of (Primary Dx) 04/22/2024 2:30 PM EST Routine [facility] [address] [place] [address] Cecy Guadalupe APRN - CNM Less than 8 weeks gestation of (Primary Dx); Encounter for supervision of normal first in first trimester; Other specified hypothyroidism 04/22/2024 2:00 PM EST Ancillary Procedure [facility] [address] [place] [address] Encounter to determine viability of , single or unspecified fetus; Positive test 04/22/2024 Abstract [facility] Part [address] [place] [address] Blanca Guadalupe LPN from Last 3 Months Immunizations Immunization Administration Dates Next Due DTP 08/27/2008, 5,2003,09/23,2003 DTaP, INFANRIX, (age 6w-6y), IM, 0.5mL 0 08/27/2008,08/17/2004,2003,09/23,2003 Hep A, HAVRIX, VAQTA, (age 1 2m-18y), IM, 0.5mL 09/20/2017,11/10/2014 Hib vaccine 08/17/2004, 4,2003,07/21 Influenza Whole 2003,2003 MMR, PRIORIX, M-M-R II, (age 12m+), SC, 0.5mL 05/26/2007,2004 Meningococcal ACWY, MENACTRA (MenACWY-D), (age 9m-55y), IM, 0.5mL 11/10/2014 Meningococcal ACWY, MENVEO (MenACWY-CRM), (age 2m-55y), IM, 0.5mL 09/08/2021 PPD Test 02/28/2022 Pneumococcal Vaccine 08/17/2004,11/19/19 04,2003,07/21 Pneumococcal, PCV-13, PREVNA R 13, (age 6w+), IM, 0.5mL 08/17/2004,2003,2003,07/21 Polio Virus Vaccine 08/27/2008,2003,2003 Poliovirus, IPOL, (age 6w+), SC/IM, 0.5mL 08/27/2008,2003,2003 TDaP, ADACEL (age 10y-64y), BOOSTRIX (age 10y+), IM, 0.5mL 11/10/2014 Varicella, VARIVAX, (age 12m +), SC, 0.5mL 05/26/2007,2004 Family History Medical History Relation Name Comments No Known Problems Father Cancer Maternal Grandfather Lamine Lung Cancer Maternal Great Grandfather B one No Known Problems Mother Heart Disease Paternal Grandmother Mercedes Relation Name Status Comments Father Maternal Grandfather Lamine Maternal Great Grandfather Mother Paternal Grandmother Mercedes Social History Tobacco Use Types Packs/Day Years Used Date Smoking Tobacco: Never Smokeless Tobacco: Never Tobacco Cessation:Counseling Given: Not Answered Alcohol Use Standard Drinks/Week Comments No 0 (1 standard drink = 0.6 oz pur e alcohol) [facility] Utilities Answer Date Recorded In the [...] place to sleep or slept in a assisted (including now)? No 03/28/2022 Housing Stability Vital Sign Answer Marvin e Recorded Unable to Pay for Housing in the Last Year Not o n file 04/21/2024 In the past 12 months, how m any times have you moved where you were living? 0 04/21/2024 At any time in the past 12 m [facility], were you homeless or living in a assisted (including now)? No 04/21/2024 Food Insecurity Answer [...] PM EST Sexual Orientation Not on file Last Filed Vital Signs Vital Sign Reading Time Taken Comments Blood Pressure 124/84 06/23/2024 8:30 AM EDT Pulse 103 06/23/2024 8:30 AM EDT Temperature 36.7 C (98 F) 06/14/2024 9:06 PM EDT Respiratory Rate 18 06/14/2024 9:06 PM EDT Oxygen Saturation 100% 06/14/2024 9:06 PM EDT Inhaled Oxygen Concentration - - Weight 137.9 kg (304 lb) 06/23/2024 8:30 AM EDT Height 154.9 cm (5' 1 ) 2022 6:08 AM EDT Body Mass Index 57.44 2022 6:08 AM EDT Plan of Treatment Upcoming Encounters Date Type Department Care Team (Late st Contact Info) Description 07/20/2024 8:00 AM EDT Ancillary Procedure [facility] [address] [place] [address] OB 20 wk US 07/20/2024 9:00 AM EDT Routine [facility] [address] [place] [address] Cecy Guadalupe, FEDERICO - LAKEISHA [address] [place] [address] [facility] [address] [place] [address] OB 20 wk US 09/28/2024 8:30 AM EDT Ancillary Procedure [facility] Part [address] [place] [address] ANTELMO 12/0609/28/2024 9:00 AM EDT Routine [facility] Part [address] [place], [place] [address] Cecy Guadalupe, WEIGH TANK OPERATOR - CNM [address] [place], [place] [id number] ANTELMO 12/06 Health Maintenance Due Date Last Done Comments HPV vaccine (1 - 3-dose series) 05/17/2018 Meningococcal B vaccine (1 of 2 - Standard) 2019 Hepatitis B vaccine (1 of 3 - 19+ 3-dose series) 05/17/2022 COVID-19 Vaccine (1 - 2023- season) 2023 Tdap Vaccine during 09/06/2024 11/10/2014 Flu vaccine (Season Ended) 2024 2003, Respiratory Syncytial Virus (RSV) or age 60 yrs+ (1 - Risk 1-dose series) 10/19/2024 DTaP/Tdap/Td vaccine (7 - Td or Tdap) 11/10/2024 11/10/2014, 08/27/2008, 08/27/2008, Additional history exists Chlamydia/GC screen 04/07/2025 04/07/2024 Depression Screen 05/19/2025 05/19/2024, 05/19/2024 Pap smear 05/20/2027 05/19/2024 Hib vaccine Completed 08/17/2004, 02/2003, 2003, Additional history exists Pneumococcal 0-49 years Vaccine Aged Out 08/17/2004, 08/17/2004, 2003, Additional history exists No longer eligible based on patient's age to complete this topic Measles,Mumps,Rubella (MMR) vaccine Discontinued 05/26/2007, 2004 Varicella vaccine Completed 05/26/2007, 2004 Polio vaccine Completed 08/27/2008, 08/18, 2003, Additional history exists Hepatitis A vaccine Completed 09/20/2017, 5 Meningococcal (ACWY) vaccine Completed 09/08/2021, 11/10/2014 HIV screen Completed 04/07/2024 Hepatitis C screen Completed 04/07/2024 Procedures Procedure Name Priority Date/Time Associated Diagnosis Comments US OB 1 OR MORE FETUS LIMITED Routine 06/24/2024 11:46 AM EDT Fall at home, initial encounter 16 weeks gestation of PANORAMA TEST Routine 06/11/2024 10:09 AM EDT Encounter for supervision of normal first in second trimester 13 weeks gestation of TSH Routine 05/27/2024 1:28 PM EDT ANTI-THYROGLOBULIN ANTIBODY Routine 05/27/2024 1:28 PM EDT T4, FREE Routine 05/27/2024 1:28 PM EDT T3, FREE Routine 05/27/2024 1:28 PM EDT THYROID PEROXIDASE ANTIBODY Routine 05/27/2024 1:28 PM EDT US OB 1 OR MORE FETUS LIMITED Routine 05/19/2024 10:31 AM EDT Ultrasound scan done for inability to hear heart tones 11 weeks gestation of RANGE ECOLOGIST CYTOLOGY Routine 05/19/2024 12:00 AM EDT US OB TRANSVAGINAL Routine 04/22/2024 2: 26 PM EST Encounter to determine viability of , single or unspecified fetus Positive test C.TRACHOMATIS N.GONORRHOEAE DNA, URINE Routine 04/07/2024 11:00 AM EST Amenorrhea Encounter for supervision of normal first in first trimester HIV SCREEN Routine 04/07/2024 9:00 AM EST Amenorrhea Encounter for supervision of normal first in first trimester HEPATITIS C ANTIBODY Routine 04/07/2024 9:00 AM EST Amenorrhea Encounter for supervision of normal first in first trimester from Last 3 Months or Most Recently Relevant to Health Maintenance Results * US OB 1 OR MORE FETUS LIMITED (06/24/2024 11:46 AM EDT) Only the most recent of2 resultswithin the time period is included. Anatomical Region Laterality Modality Abdomen Ultrasound Narrative 07/06/2024 1:21 PM EDT OB Limited d/t patient fall over the weekend. 16.3 WK GA. HR: 146 bpm CL: 3.7 cm Anterior placenta. Breech presentation. Active movements. Cecy Shaniqua Collins WEIGH TANK OPERATOR - CNM IMG US ORDERABLE S Final Result * Panorama Test (06/11/2024 10:09 AM EDT) Report Summary LOW RISK 06/11/2024 10:09 AM EDT [facility] Comment:LOW RISK Report Note See Notes 06/11/2024 10:09 AM EDT [facility] Gender of Fetus Male 10:09 AM EDT [facility] Fraction 3.7% 06/11/2024 10:09 AM EDT [facility] Trisomy 21 Result Text Low Risk 06/11/2024 10:09 AM EDT [facility] Trisomy 21 Age-Based Risk Text 140 (0.09%) 06/11/2024 10:09 AM EDT [facility] Trisomy 21 Risk Score Text <1/10,000 (<0.01%) 06/11/2024 10:09 AM EDT [facility] Trisomy 18 Result Text Low Risk 06/11/2024 10:09 AM EDT [facility] Trisomy 18 Age-Based Risk Text 3,015 (0.03%) 06/11/2024 10:09 AM EDT [facility] Trisomy 18 Risk Score Text <1/10,000 (<0.01%) 06/11/2024 10:09 AM EDT [facility] Trisomy 13 Result Text Low Risk 06/11/2024 10:09 AM EDT [facility] Trisomy 13 Age-Based Risk Text 02/26,389 (0.01%) 06/11/2024 10:09 AM EDT [facility] Trisomy 13 Risk Score Text <1/10,000 (<0.01%) 06/11/2024 10:09 AM EDT [facility] Monosomy X Result Text Low Risk 06/11/2024 10:09 AM EDT [facility] Monosomy X Age-Based Risk Text 1/568 (0.18%) 06/11/2024 10:09 AM EDT [facility] Monosomy X Risk Score Text <1/10,000 (<0.01%) 06/11/2024 10:09 AM EDT [facility] Triploidy Result Text Low Risk 10:09 AM EDT [facility] Footnotes See Notes 06/11/2024 10:09 AM EDT [facility] Comment: Testing Methodology DNA isolated from maternal blood, which contains placental DNA, is amplified at specific loci using a targeted PCR assay and is sequenced using a high- throughput sequencer. fraction is determined using a proprietary algorithm incorporating data from single nucleotide polymorphism-based (SNP-based) next-generation sequencing [Asaf Mcafrland et al. Obstet Gynecol. 2014 Sep;124(2 Pt 1):210-8]. If there is sufficient fraction, sequencing data is analyzed using a proprietary SNP- based algorithm to determine the copy number for chromosomes 13, 18, 21, X and Y. If ordered, specific microdeletions will be evaluated using similar methodology [Darcy RJ et al. Am J Obstet Gynecol. 2015 Apr;212(3):332.e1-9]. If the fraction is insufficient, signal enhancement and/or an additional algorithm to determine whether there is an increased risk for triploidy, trisomy 18, and trisomy 13 may be utilized [Markus et al. Ultrasound Obstet Gynecol 2019; 53:73-79]. However, some samples will not produce a result due to failure to meet the necessary quality thresholds. This test has been validated on women with a guido, twin or egg donor of at least nine weeks gestation. A result will not be available for higher order multiples and multiple gestation pregnancies with an egg donor or surrogate, or bone marrow transplant recipients. Complete test panel is not available for twin gestations and pregnancies achieved with an egg donor or surrogate. For twin pregnancies with a fraction value below the threshold for analysis, a sum of the fractions for both twins will be reported. As this assay is a screening test and not diagnostic, false positives and false negatives can occur. High risk test results need diagnostic confirmation by alternative testing methods. Low risk results do not fully exclude the diagnosis of any of the syndromes nor do they exclude the possibility of other chromosomal abnormalities or defects, which are not a part of this test. Potential sources of inaccurate results include, but are not limited to, mosaicism, low fraction, limitations of current diagnostic techniques, or misidentification of samples. This test will not identify all deletions associated with each microdeletion syndrome. This test has been validated for deletions > = 0.5 Mb within the 22q11.2 A-D region. This test has been validated on full region deletions only for 1p36 deletion syndrome, Cri-du-chat syndrome, Prader Willi syndrome and Angelman syndrome and may be unable to detect smaller deletions. Microdeletion risk score may be dependent upon fraction, as deletions on the maternally inherited copy are difficult to identify at lower fractions. Test results should always be interpreted by a clinician in the context of clinical and familial data with the availability of genetic counseling when appropriate. Disclaimers The extraction, library preparation, and sequencing of this test were performed by [employer] [address] [place] [address] [address] (CLIA ID [id number]). The data analysis and reporting of this test were performed by [facility]., [address] [place] [address], [place] [address] (CLIA ID [id number]). The performance characteristics of this test were developed by [employer].(CLIA ID [id number]). This test has not been cleared or approved by the U.S. Food and Drug Administration (FDA). These laboratories are regulated under CLIA as qualified to perform high-complexity testing. 2020 [employer] [facility]. All Rights Reserved. Please refer to the attached PDF report Reviewed By: Junior Salter M.D., Ph.D., [facility], Senior Breakfast And Room Attendant [facility] Buttonhole Maker Hand: Olimpia Medina, Ph.D., [facility] IF THE ORDERING PROVIDER HAS QUESTIONS OR WISHES TO DISCUSS THE RESULTS, PLEASE CONTACT US AT [phone] #3. Ask for the NIPT genetic counselor vice president education. Blood (substance) (Venous Blood) 06/11/2024 10:08 AM EDT Cecy Guadalupe APRN - SCOUT [facility] ORDERABLES - [facility] Final Result [facility] [address] [place] [address], [facility] * Thyroid Peroxidase Antibody (05/27/2024 1:28 PM EDT) Thyroid Peroxidase (Tpo) Ab <4.0 0.0 - 25.0 IU/mL 05/27/2024 1:28 PM EDT [facility] Comment: Reference Range: <25.0 Negative 25.0-35.0 Equivocal >35.0 Positive When results are Equivocal, it is recommended to retest after 8-12 weeks. 05/27/2024 1:28 PM EDT 05/27/2024 1:29 PM EDT Nik Sheridan MD IMMUNOLOGY ORDERABLES Fin al Result Performing Organization Address [facility] Co de Phone Number [facility] [address] [place] [address], [facility] [phone] [phone] * Anti-Thyroglobulin Antibody (05/27/2024 1:28 PM EDT) Thyroglobulin Ab 15.0 0.0 - 40.0 IU/mL 05/27/2024 1:28 PM EDT [facility] Comment: Reference Range: <40.0 Negative 40.0-60.0 Equivocal >60.0 Positive When results are Equivocal, it is recommended to retest after 8-12 weeks. 05/27/2024 1:28 PM EDT 05/27/2024 1:29 PM EDT Nik Sheridan MD IMMUNOLOGY ORDERABLES Fin al Result Performing Organization Address City/[facility]/ZIP Co de Phone Number [facility] [address] [place], [place] [id number], [facility] [phone] [address], [facility] [phone] * T3, Free (05/27/2024 1:28 PM EDT) T3, Free 3.75 2.00 - 4.40 pg/mL 05/27/2024 1:28 PM EDT [facility] [employer] 05/27/2024 1:28 PM EDT 05/27/2024 1:29 PM EDT Nik Sheridan MD CHEMISTRY ORDERABLES Zenaida l Result [facility] [address] [place] [address] [place] [address], [facility] [phone] * TSH (05/27/2024 1:28 PM EDT) TSH 1.12 0.27 - 4.20 uIU/mL 05/27/2024 1:28 PM EDT [facility] 05/27/2024 1:28 PM EDT 05/27/2024 1:29 PM EDT Cecy Guadalupe APRN - SCOUT[facility] CHEMISTRY ORDERA BLES Final Result [facility] [address] [place] [address] * T4, Free (05/27/2024 1:28 PM EDT) T4 Free 1.2 0.92 - 1.68 ng/dL 05/27/2024 1:28 PM EDT [facility] 05/27/2024 1:28 PM EDT 05/27/2024 1:29 PM EDT Nik Sheridan MD CHEMISTRY ORDERABLES Zenaida l Result [facility] [address] [place], [place] [address] [id number] [place] [address] * RANGE ECOLOGIST Cytology (05/19/2024 12:00 AM EDT) Cytology Report Path Number: [id number] DIAGNOSIS Imaged ThinPrep Pap - Cervical (1 monolayer slide): Specimen Adequacy: Satisfactory for evaluation. - Endocervical/trans formation zone component present. Descriptive Diagnosis: Negative for intraepithelial lesion or malignancy. Cytotech Screener: EY Electronically Signed Out Kevin MUNGUIA(ASCP) /05/26/2024 Source of Specimen: A: Imaged ThinPrep Pap - Cervical (1 monolayer slide) Clinical History Z12.4 Encounter for screening for malignant neoplasm of cervix LMP: 02/06/2024 Processing Lab: [address] [id number] Interpretation performed at [address] [phone] This Pap Test has been evaluated with [...] GYNECOLOGIC CYTOLOGY REPORT Patient Name: DAX ROSARIO [facility] Rec: [id number] [facility] [employer] [facility] ANATOMIC PATHOLOGY [address] [place] [id number] [facility] [employer] CERVICAL MATERIAL 05/19/2024 025 8:21 AM EDT Cecy Guadalupe WEIGH TANK OPERATOR - CNM PATHOLOGY/CYTOLO GY ORDERABLES Final Result [facility] [address] [place] [address], [facility] [phone] [facility] * US OB TRANSVAGINAL (04/22/2024 2:26 PM EST) Anatomical Region Laterality Modality Abdomen, Pelvis Ultrasound Narrative 05/04/2024 11:53 AM EDT 7.3 WK IUP CL:3.1cm HR:155bpm RT. OVARY:seen, wnl LT. OVARY:seen, wnl Cecy Guadalupe APRN - [place] IMG US ORDERABLE S Final Result * C.trachomatis N.gonorrhoeae DNA, Urine (04/07/2024 11:00 AM EST) Specimen Description .URINE 04/07/2024 11:00 AM EST [facility] C. trachomatis DNA ,Urine NEGATIVE NEGATIVE 04/07/2024 11:00 AM EST [facility] Comment: CHLAMYDIA TRACHOMATIS DNA not detected by nucleic acid amplification. [...] results by an alternative nucleic acid target. N. gonorrhoeae DNA, Urine NEGATIVE NEGATIVE 04/07/2024 11:00 AM EST [facility] Comment: NEISSERIA GONORRHOEAE DNA not detected by nucleic acid amplification. [...] results by an alternative nucleic acid target. Urine (Urine) 04/07/2024 11: 00 AM EST 04/07/2024 11:56 AM EST Cecy Guadalupe APRN - [place] MICROBIOLOGY - G ENERAL ORDERABLES Final Result Performing Organization Address [facility]/ZIP Co de Phone Number [facility] [address] [place], [place] [id number], [facility] [phone] [address] [place] [id number], [facility] [phone] * Hepatitis C Antibody (04/07/2024 9:00 AM EST) Hepatitis C Ab NONREACTIVE NONREACTIVE 04/07/19 9:00 AM EST [facility] Comment: The hepatitis C procedure used in [...] recommended by ordering HCV RNA by PCR. Blood BLOOD SPECIMEN / Unknown 04/07/2024 9:00 AM EST 04/07/2024 11:57 AM EST Cecy Martin CNM IMMUNOLOGY ORDER LOUISE Final Result Performing Organization Address [facility]/ZIP Co de Phone Number [facility] [address] [place], [place] [id number], [facility] [phone] [address] [place] [address], [facility] [phone] * HIV Screen (04/07/2024 9:00 AM EST) Pathologist [facility] HIV Ag/Ab NONREACTIVE NONREACTIVE 04/07/2024 9:00 AM EST Omn[facility]rone Comment: No laboratory evidence of HIV infection. If acute HIV infection is suspected, consider testing for HIV-1 RNA. BLOOD SPECIMEN / Unknown 04/07/2024 9:00 AM EST 04/07/2024 11:57 AM EST Cecy Guadalupe APRN - [place] IMMUNOLOGY ORDER LOUISE Final Result Performing Organization Address City/[facility]/ZIP Co de Phone Number [facility] [address] [place], [place] [id number], [facility] [phone] Omnidrone [address] [place] [address], [facility] [phone] from Last 3 Months or Most Recently Relevant to Health Maintenance Insurance [facility] Care Teams Trim Stencil Maker Relationship Specialty Start Date End Date Norma Bernal APRN - NP [address] [place] [address] PCP - General Family Medicine 05/27/24
--- OUTSIDE RECORDS SUMMARY | 2024-07-10 13:18 | XMS_ITS | Encounter Summary ---
Author Organization [facility] Address [address] [place] [address] Care Team Providers Care Manager Trainee Name Role Phone Norma Bernal APRN - MAILE Primary Care Provid er Encounter Details Date Type Department Care Team (Late st Contact Info) Description 05/26/2024 Results Follow-Up [facility] Obstetrics [facility]ne[facility] [address] [facility] [place] [id number] Cecy Guadalupe, POSITION CLASSIFIER - CNM [address] [facility] [address] [place] [address] Social History Tobacco Use Types Packs/Day Years Used Date Smoking Tobacco: Never Smokeless Tobacco: Never Alcohol Use Standard Drinks/Week Comments No 0 (1 standard drink = 0.6 oz pur e alcohol) [facility] Utilities Answer Date Recorded In the past 12 months has [employer], gas, oil, or water [employer] threatened to shut off services in your [...] place to sleep or slept in a care home (including now)? No 03/28/2022 Housing Stability Vital Sign Answer Marvin e Recorded Unable to Pay for Housing in the Last Year Not o n file 04/21/2024 In the past 12 months, how m any times have you moved where you were living? 0 04/21/2024 At any time in the past 12 m [facility], were you homeless or living in a care home (including now)? No 04/21/2024 Food Insecurity Answer [...] Description 07/20/2024 8:00 AM EDT Ancillary Procedure [facility] Part of [address] [place] [address] OB 20 wk US 07/20/2024 9:[address] [facility] Part of [address] [place] [address] Cecy Guadalupe, FEDER[place] - CNIla [address] [place] [address] Dr Harry [address] [place] [address] OB 20 wk US 09/28/2024 8:30 AM EDT Ancillary Procedure [facility] [address] [place] [address] ANTELMO 12/0609/28/2024 9:[address] [facility] [address] [place] [address] Cecy Guadalupe, FEDERICO - CNIla [address] [place] [address] Dr Harry [address] [facility] [place] [address] ANTELMO 12/06 documented as of this encounter Visit Diagnoses Not on filedocumented in this encounter Care Teams Manager Trainee Relationship Specialty Start Date End Date Norma Bernal APRN - [place]EP [place] [phone] PCP - General Family Medicine 05/27/24 documented as of this encounter
--- OUTSIDE RECORDS SUMMARY | 2024-07-10 13:18 | XMS_ITS | Clinical Summary ---
Author Organization [facility] Address [address] [place] [id number] Care Team Providers Care Cutter Operator Tile Name Role Phone Unavailable Primary Care Provider Unavailabl e Allergies Active Allergy Reactions Criticality Noted Date Comments Promethazine 04/23/2018 Other Reaction(s): Other (See Comments) Hallucinations, anxiety Sulfa Antibiotics Hives Low 04/08/2018 Medications ARIPiprazole (Abilify) 2 MG tablet Take 2 mg by mouth Daily 4 Active FLUoxetine (PROzac) 20 MG capsule Take 20 mg by mouth Daily Active predniSONE (Deltasone) 20 MG tabletIndications:L ower respiratory infection,Acute cough,Wheezing Take two tabs once a day for 5 days 10 tablet 4 Active OLANZapine (ZyPREXA) 2.5 MG tablet 1 (one) time each day at the same time 5 Active 28-0.8 MG tablet 1 (one) time each day at the same time Active ARIPiprazole (Abilify) 10 MG tablet Take 10 mg by mouth Daily Active levothyroxine (Synthroid, Levoxyl) 50 MCG tabletIndications:A cquired hypothyroidism (CMS/HCC) Take 1 tablet (50 mcg) by mouth Daily 30 tablet 2 5 09/07/19 25 Active Encounters Date Type Department Care Team Description 06/08/2024 9:30 AM EDT Office Visit [facility] [address] [place] [address] Nik Sheridan MD Acquired hypothyroidism (CMS/HCC) (Primary Dx); Hyperthyroidism, maternal, antepartum, second trimester (CMS/HCC) 06/08/2024 Bamboo flowsheet [facility] [address] [place] [id number] Nik Sheridan MD 05/29/2024 11:55 AM EDT Office Visit [facility] [address] [place] [address] Dorita Lemos, ACCESS REGISTRAR Acute cough (Primary Dx); Viral upper respiratory illness; 12 weeks gestation of 05/29/2024 Travel 04/22/2024 10:00 AM EST Office Visit [facility] [address] [place] [address] Nik Sheridan MD Acquired hypothyroidism (CMS/HCC) (Primary Dx); Hypothyroid in , antepartum, first trimester (CMS/HCC) 04/22/2024 Bamboo flowsheet [facility] [address] [place] [id number] Nik Sheridan MD 04/15/2024 Travel from Last 3 Months Immunizations Immunization Administration Dates Next Due DTP 08/27/2008, 5,2003,2003, DTaP 08/27/2008, 5,2003,2003, Hep A, ped/adol, 2 dose 09/20/2017,11/10/2014 HiB, unspecified 08/17/2004,2003, 4,2003 IPV 08/27/2008,2003,2003 Influenza Whole 2003,2003 MMR 05/26/2007,2004 Meningococcal MCV4O 09/08/2021 Meningococcal MCV4P 11/10/2014 Pneumococcal Conjugate PCV 13 08/17/2004, 004,2003,2003 Pneumococcal, Unspecified 08/17/2004,2003, 2003,2003 Polio, Unspecified 08/27/2008,2003, 004 Social History Tobacco Use Types Packs/Day Years Used Date Smoking Tobacco: Never Smokeless Tobacco: Never Tobacco Cessation:Counseling Given: Not Answered Alcohol Use Standard Drinks/Week Comments Never 0 (1 standard drink = 0.6 oz pur e alcohol) Comments Yes Sex and Gender Information Value Date Recorded Sex Assigned at Female 04/09/2024 10:04 AM EST Legal Sex Female 11:47 PM EDT Gender Identity Female 04/09/2024 10:04 AM EST Sexual Orientation Straight 04/09/2024 10 :04 AM EST Last Filed Vital Signs Vital Sign Reading Time Taken Comments Blood Pressure 120/70 06/08/2024 9:33 AM EDT Pulse 104 06/08/2024 9:33 AM EDT Temperature 36.3 C (97.4 F) 05/29/2024 11:57 AM EDT Respiratory Rate 20 06/08/2024 9:33 AM EDT Oxygen Saturation 99% 06/08/2024 9:33 AM EDT Inhaled Oxygen Concentration - - Weight 138 kg (305 lb) 06/08/2024 9:33 AM EDT Height 154.9 cm (5' 1 ) 06/08/2024 9:33 AM EDT Body Mass Index 57.63 06/08/2024 9:33 AM EDT Plan of Treatment Upcoming Encounters Date Type Department Care Team (Late st Contact Info) Description 07/20/2024 11:10 AM EDT Office Visit [facility] [address] [place] [address] Nik Sheridan MD [address] [place] [address] Procedures Procedure Name Priority Date/Time Associated Diagnosis Comments T4, FREE Routine 05/28/2024 3:10 PM EDT Acquired hypothyroidism (CMS/HCC) T3, FREE Routine 05/28/2024 3:10 PM EDT Acquired hypothyroidism (CMS/HCC) THYROID PEROXIDASE ANTIBODIES Routine 05/28/2024 3:10 PM EDT Acquired hypothyroidism (CMS/HCC) THYROGLOBULIN ANTIBODIES Routine 025 3:10 PM EDT Acquired hypothyroidism (CMS/HCC) TSH Routine 05/28/2024 8:20 AM EDT Acquired hypothyroidism (CMS/HCC) from Last 3 Months Results * Thyroid peroxidase antibody (05/28/2024 3:10 PM EDT) Blood Venous blood specimen / Unknown Nik Sheridan MD LAB BLOOD ORDERABLES Final Re sult Performing Organization Address [facility] de Phone Number [email or web address] * Thyroglobulin Antibody (05/28/2024 3:10 PM EDT) Blood Venous blood specimen / Unknown Nik Sheridan MD LAB BLOOD ORDERABLES Final Re sult Performing Organization Address [facility] de Phone Number [email or web address] * T3, free (05/28/2024 3:10 PM EDT) Blood Venous blood specimen / Unknown Nik Sheridan MD LAB BLOOD ORDERABLES Final Re sult Performing Organization Address [facility] de Phone Number [email or web address] * T4, free (05/28/2024 3:10 PM EDT) Blood Venous blood specimen / Unknown Nik Sheridan MD LAB BLOOD ORDERABLES Final Re sult Performing Organization Address [facility] de Phone Number [email or web address] * TSH (05/28/2024 8:20 AM EDT) Blood Venous blood specimen / Unknown Nik Sheridan MD LAB BLOOD ORDERABLES Final Re sult [facility] from Last 3 Months Insurance [employer]
--- OUTSIDE RECORDS SUMMARY | 2024-07-10 13:18 | XMS_ITS | Patient Health Record ---
Author Organization [facility] es Address [address] [place] [address] Care Team Providers Care Mortgage Closing Clerk Name Role Phone Norma Bernal Primary Care Provider Paula Sheikh Unavailable [phone] Nelly Almeida Unavailable Jailyn Murphy Unavailable [phone] Boone Parker Unavailable [phone] Samina Reaves Unavailable [phone] Nelly George Unavailable [phone] Allergies Allergen (clinical drug ingredient) Drug/Non Drug Allergy documented on EMR Reaction Allergy Type Onset Date Status promethazine Promethazine Unknown Drug Allergy A ctive Substance with sulfonamide structure and antibacterial mechanism of action (substance) Sulfa Antibiotics hives Drug Allergy Active Results Component Value Reference Range Notes urine Reviewed date:02/26/2024 04:25:20 PM Interpretation:Neg Performing Lab: Notes/Report: Neg result Neg Reason For Referral Reason 06/04 Attempt refer to Fatemeh Jones for counseling regarding coping skills. she is and limited on medications. Diagnosis 1 JOSEP (generalized anx iety disorder) (F41.1) Diagnosis 2 Mood disorder (F39) Diagnosis 3 First trimester preg marie (Z34.91) Referral Organization [facility] [place] Referring Provider First Name Paula Referring Provider Last Name Kori Referring Provider Speciality Behavioral Health Referred Organization [facility] Referred Provider Jailyn Murphy Referred Address [address] [place],[address] Referred Provider Specialty Talk Ther apy Referral Priority Routine Medications Medication SIG (Take, Route, Frequency, Duration) Notes Start Date End Date Status Ipratropium-Albutero l 20-100 MCG/ACT 1 puff as needed Inhalation every 6 hrs for 7 days 06/01/2024 Active Symbicort 160-4.5 MCG/ACT 2 puffs Inhalation once a day for 30 days 06/05/2024 10/03/2024 Active Albuterol Sulfate HFA 108 (90 Base) MCG/ACT 2 puff as needed Inhalation every 4 hrs for 30 days 06/05/2024 Active Omeprazole 40 MG 1 capsule 1/2 to 1 hour before morning meal Orally Once a day Active 28-0.8 MG 1 tablet Orally Once a day Active Levothyroxine Sodium 50 MCG TAKE 1 TABLET BY MOUTH EVERY DAY Oral for 30 Days Active Breztri Aerosphere 160-9-4.8 MCG/ACT 2 puffs Inhalation Twice a day for 10 days pt needs 1 inhaler per month 07/09/2024 09/07/2024 Active ARIPiprazole 15 MG 1 tablet Orally Once a day for 30 days increased dosage; disregard the 10mg refills please 02/26/2024 Active FLUoxetine HCl 40 MG 1 capsule Orally Once a day 02/26/2024 Active Cetirizine HCl 10 MG 10 ML Orally Once a day for 30 days 07/09/2024 Active Albuterol Sulfate (2.5 MG/3ML) 0.083% 3 mL as needed Inhalation every 6 hrs for 30 days 07/09/2024 Active QUEtiapine Fumarate 25 MG 1 tablet at bedtime Orally Once a day for 30 days new medication. stopping Olanzapine 05/26/2024 Not-Taking Nebulizer/Tubing/Joann thpiece - as directed with breathing treatment for 30 days 07/09/2024 Active Social History [...] Problem Status W/U Status Risk Notes Problem 36854155 Anxiety (F41.9) Active confirmed Problem 30958690 Mood disorder (F39) Active confirmed Problem 271200997 Mild intermitten t asthma with acute exacerbation (J45.21) Active confirmed Problem 09596010 Missed menses (N92.6) Active confirmed Problem 430511939 Severe persisten t asthma with acute exacerbation (J45.51) Active confirmed Problem 616804267708 Mild reactive airways disease, unspecified whether persistent (J45.909) Active confirmed Problem 24098455 JOSEP (generalized anxiety disorder) (F41.1) Active confirmed Vital Signs Heart Rate 99 /min 07/09/2024 Temperature 98 degrees Fahrenheit 07/09/2024 Respiratory Rate 20 /min 06/01/2024 Oximetry 99 % 07/09/2024 Blood pressure diastolic 82 mm Hg 07/09/2024 Height 61 in 07/09/2024 Blood pressure systolic 122 mm Hg 07/09/2024 Weight 302 lbs 07/09/2024 BMI 57.06 kg/m2 07/09/2024 Encounters Encounter Location Date Provider Diagnosis [facility] [address] [place] [address] 07/09/2024 Norma Bernal [facility] [address] [place] [address] 02/27/2024 Norma Bernal [facility] [address] [place] [address] 03/24/2024 Nelly Almeida [facility] [address] [place] [address] 04/28/2024 Norma Solisault [facility] [address] [place] [address] 04/28/2024 [facility] [address] [place] [address] 05/25/2024 Paula Sheikh [facility] [address] [place] [address] 05/29/2024 Paula Sheikh Anxiety F41.[address] [place] [address] 06/01/2024 [facility] [address] [place] [address] 06/08/2024 [facility] [address] [place] [place] [address] 06/09/2024 Norma Solisault [facility] [address] [place] [address] 02/05/[facility] [address] [place] [address] 03/23/2024 Norma Solisault [facility] [address] [place] [address] 03/23/2024 Nelly Almeida Anxiety F41.9 [facility] [address] [place] [address] 03/30/2024 Nelly Almeida [facility] [address] [place] [address] 04/23/2024 Normamyrtle Bernal JOSEP (generalized anxiety disorder) F41.1 [facility] [address] [place] [address] 05/03/2024 [facility] [address] [place] [address] 06/06/2024 Paula Sheikh JOSEP (generalized anxiety disorder) F41.1 [address] [place] [address] 06/25/2024 Paula Sheikh [facility] [address] [facility] [place] [address] 06/01/2024 Nelly George Persistent cough for 3 weeks or longer R05.3 ; Mild reactive airways disease, unspecified whether persistent J45.909 and Obesity, unspecified class, unspecified obesity type, unspecified whether serious comorbidity present E66.9 [address] [place] [address] 06/05/2024 Norma Bernal Mild intermittent asthma with acute exacerbation J45.21 [facility] [address] [facility] [place] [address] 02/26/2024 Nelly Almeida Anxiety F41.9 and Missed menses N92.[address] [address] 04/13/2024 Norma Bernal JOSEP (generalized anxiety disorder) F41.1 and First trimester Z34.91 [address] [place] [address] 07/09/2024 Norma Bernal Severe persistent asthma with acute exacerbation J45.51 [address] [place] [address] 05/01/2024 Samina Jean Paul Mood disorder F39 and JOSEP (generalized anxiety disorder) F41.1 [address] [place] [address] 05/11/2024 Samina Jean Paul Mood disorder F39 and JOSEP (generalized anxiety disorder) F41.1 [address] [place] [address] 05/26/2024 Paula Sheikh JOSEP (generalized anxiety disorder) F41.1 and Mood disorder F39 [facility] [address] [facility] [place] [address] 06/29/2024 Paula Sheikh Mood disorder F39 and JOSEP (generalized anxiety disorder) F41.[address] [address] 06/16/2024 Paula Whalenberger Mood disorder F39 and JOSEP (generalized anxiety disorder) F41.1 Assessments Encounter Date Diagnosis (ICD Code) Assessment Notes Treatment Notes Treatment Clinical Notes Section Notes 05/01/2024 Mood disorder (ICD-10 - F39) Continue Fluoxetine as prescribed Will increase Olanzapine 5mg to BID. Patient will continue current treatment plan. Patient verbally acknowledges understanding instructions including medication education and has no further questions comments or concerns at this time. Follow in 2 weeks . Recommended treatment for Bipolar disorder includes FDA approved and OFF label medications: second generation antipsychotics and mood stabilizers. Second generation antipsychotic medications can cause headache, drowsiness, agitation, dizziness, nausea, or extrapyramidal symptoms such as tremors, muscle spasms, slowness of movement or jerking of muscles. Stable The patient verbalizes understanding with all questions answered thoroughly and is in agreement with treatment plan. Continue current treatment. Call for problems GOALS: Maintain medication regimen . _Improve mood stability _Improve anxiety control _Improve social and interpersonal functioning . Patient/Guardian will call sooner if symptoms worsen. Patient understands to go to ER if needed if symptoms become severe. . Crisis Intervention plan was discussed and agreed upon. Patient/Guardian will call 911 in case of emergency. Emergency contact information was provided to the patient/guardian. . Pharmacological management: . Alternative medication plans were discussed with the patient/guardian. All relevant side effects and potential adverse effects were discussed with the patient/guardian. Standard cautions and potential benefits were discussed. Patient/Guardian consented to the start/continuation of the treatment. 05/01/2024 JOSEP (generalized anxiety disorder) (ICD-10 - F41.1) continue Fluoxetine as prescribed 05/11/2024 Mood disorder (ICD-10 - F39) Will increase Olanzapine to 10mg BID with 5mg as PRN. Patient is and aware of the limited medications that are safe in . risk outweights benefits discussed. Patient will continue current treatment plan. Patient verbally acknowledges understanding instructions including medication education and has no further questions comments or concerns at this time. . Follow in 2 weeks . Recommended treatment for Bipolar disorder includes FDA approved and OFF label medications: second generation antipsychotics and mood stabilizers. Second generation antipsychotic medications can cause headache, drowsiness, agitation, dizziness, nausea, or extrapyramidal symptoms such as tremors, muscle spasms, slowness of movement or jerking of muscles. . Stable . The patient verbalizes understanding with all questions answered thoroughly and is in agreement with treatment plan. Continue current treatment. Call for problems GOALS: Maintain medication regimen _Improve mood stability _Improve anxiety control _Improve social and interpersonal functioning . Patient/Guardian will call sooner if symptoms worsen. Patient understands to go to ER if needed if symptoms become severe. . Crisis Intervention plan was discussed and agreed upon. Patient/Guardian will call 911 in case of emergency. Emergency contact information was provided to the patient/guardian. . Pharmacological management: . Alternative medication plans were discussed with the patient/guardian. All relevant side effects and potential adverse effects were discussed with the patient/guardian. Standard cautions and potential benefits were discussed. Patient/Guardian consented to the start/continuation of the treatment. 03/23/2024 Anxiety (ICD-10 - F41.9) 04/13/2024 JOSEP (generalized anxiety disorder) (ICD-10 - F41.1) Take medications as we discussed. Follow up in 1 month as we discussed. These are medications that are considered safer to use during 04/13/2024 First trimester (ICD-10 - Z34.91) Continue to follow up with [facility] as we discussed. 04/23/2024 JOSEP (generalized anxiety disorder) (ICD-10 - F41.1) 05/26/2024 JOSEP (generalized anxiety disorder) (ICD-10 - F41.1) Recommended treatment is: _ FDA approved medication for this age group include Selective Serotonin Reuptake Inhibitors (SSRI) and Selective Norepinephrine Reuptake Inhibitors (SNRI). . Selective serotonin reuptake inhibitors? can cause nausea, headache, upset stomach, diarrhea, constipation, anxiety, irritability, and sexual dysfunction. . Please monitor for worsening of symptoms, especially suicidal ideations or morbid thoughts, and call office and or go to the emergency department immediately. Pt does not endorse exhibiting symptoms aligning with kyree. . The patient verbalizes understanding with all questions answered thoroughly and is in agreement with treatment plan. . Continue current treatment plan Patient/Guardian will call sooner if symptoms worsen. Patient understands to go to ER if needed if symptoms become severe. Crisis Intervention plan was discussed and agreed upon. Patient/Guardian will call 911 in case of emergency. Emergency contact information was provided to the patient/guardian. 05/29/2024 Anxiety (ICD-10 - F41.9) 06/01/2024 Mild reactive airways disease, unspecified whether persistent (ICD-10 - J45.909) 06/01/2024 Persistent cough for 3 weeks or longer (ICD-10 - R05.3) Instructed patient to increase fluid intake. May use sugar free cough drop as needed. Duoneb inhaler for 3 days as needed for cough. Follow up with PCP as needed. All questions and concerns addressed. 06/05/2024 Mild intermittent asthma with acute exacerbation (ICD-10 - J45.21) Take medications as directed. Rest and increase fluid intake. Take meds with food to prevent stomach upset. Use inhaler as needed for coughing spells and SOB. It is better to use inhaler a few times a day over the next 2-3 days. Follow up with our office in 4-5 weeks as we discussed Stop Combivent inhaler as we discussed 06/06/2024 JOSEP (generalized anxiety disorder) (ICD-10 - F41.1) 06/16/2024 Mood disorder (ICD-10 - F39) Patient will continue current treatment plan. Patient verbally acknowledges understanding instructions including medication education and has no further questions comments or concerns at this time. . Follow in 6 weeks . Recommended treatment for Bipolar disorder includes FDA approved and OFF label medications: second generation antipsychotics and mood stabilizers. Second generation antipsychotic medications can cause headache, drowsiness, agitation, dizziness, nausea, or extrapyramidal symptoms such as tremors, muscle spasms, slowness of movement or jerking of muscles. . Stable . The patient verbalizes understanding with all questions answered thoroughly and is in agreement with treatment plan. . Continue current treatment. Call for problems . GOALS: . Maintain medication regimen . _Improve mood stability . _Improve anxiety control . _Improve social and interpersonal functioning . Patient/Guardian will call sooner if symptoms worsen. Patient understands to go to ER if needed if symptoms become severe. . Crisis Intervention plan was discussed and agreed upon. Patient/Guardian will call 911 in case of emergency. Emergency contact information was provided to the patient/guardian. . Pharmacological management: . Alternative medication plans were discussed with the patient/guardian. All relevant side effects and potential adverse effects were discussed with the patient/guardian. Standard cautions and potential benefits were discussed. Patient/Guardian consented to the start/continuation of the treatment. 02/26/2024 Anxiety (ICD-10 - F41.9) Will start patient on medication today. Discussed risks and side effects of medication including possible nausea, headache, upset stomach, diarrhea, constipation, anxiety, irritability, and sexual dysfunction. Most mild side effects improve over 4-6 weeks of use. Please monitor for worsening of symptoms, especially suicidal ideations or morbid thoughts, and call office and or go to the emergency department immediately if this occurs. Patient verbalized understanding, in agreement with plan. 06/29/2024 Mood disorder (ICD-10 - F39) Patient will continue current treatment plan. Patient verbally acknowledges understanding instructions including medication education and has no further questions comments or concerns at this time. . Follow in 1 Month . Recommended treatment for Bipolar disorder includes FDA approved and OFF label medications: second generation antipsychotics and mood stabilizers. Second generation antipsychotic medications can cause headache, drowsiness, agitation, dizziness, nausea, or extrapyramidal symptoms such as tremors, muscle spasms, slowness of movement or jerking of muscles. Discussed the risks/benefits or taking medications during . pt was with verbal understanding. . Stable . The patient verbalizes understanding with all questions answered thoroughly and is in agreement with treatment plan. . Continue current treatment. Call for problems . GOALS: . Maintain medication regimen . _Improve mood stability . _Improve anxiety control . _Improve social and interpersonal functioning . Patient/Guardian will call sooner if symptoms worsen. Patient understands to go to ER if needed if symptoms become severe. . Crisis Intervention plan was discussed and agreed upon. Patient/Guardian will call 911 in case of emergency. Emergency contact information was provided to the patient/guardian. . Pharmacological management: . Alternative medication plans were discussed with the patient/guardian. All relevant side effects and potential adverse effects were discussed with the patient/guardian. Standard cautions and potential benefits were discussed. Patient/Guardian consented to the start/continuation of the treatment. 07/09/2024 Severe persistent asthma with acute exacerbation [...] medication to help with nausea due to 06/29/2024 JOSEP (generalized anxiety disorder) (ICD-10 - F41.1) Recommended treatment is: _ FDA approved medication for this age group include Selective Serotonin Reuptake Inhibitors (SSRI) and Selective Norepinephrine Reuptake Inhibitors (SNRI). . Selective serotonin reuptake inhibitors? can cause nausea, headache, upset stomach, diarrhea, constipation, anxiety, irritability, and sexual dysfunction. . Please monitor for worsening of symptoms, especially suicidal ideations or morbid thoughts, and call office and or go to the emergency department immediately. Pt does not endorse exhibiting symptoms aligning with kyree. . The patient verbalizes understanding with all questions answered thoroughly and is in agreement with treatment plan. . Continue current treatment plan Patient/Guardian will call sooner if symptoms worsen. Patient understands to go to ER if needed if symptoms become severe. Crisis Intervention plan was discussed and agreed upon. Patient/Guardian will call 911 in case of emergency. Emergency contact information was provided to the patient/guardian. 02/26/2024 Missed menses (ICD-10 - N92.6) Wants to make sure not prior to starting meds bc has not been trying but not preventing and menses have been slightly irregular. Neg testing, pt ed on results. 06/16/2024 JOSEP (generalized anxiety disorder) (ICD-10 - F41.1) Recommended treatment is: _ FDA approved medication for this age group include Selective Serotonin Reuptake Inhibitors (SSRI) and Selective Norepinephrine Reuptake Inhibitors (SNRI). . Selective serotonin reuptake inhibitors? can cause nausea, headache, upset stomach, diarrhea, constipation, anxiety, irritability, and sexual dysfunction. . Please monitor for worsening of symptoms, especially suicidal ideations or morbid thoughts, and call office and or go to the emergency department immediately. Pt does not endorse exhibiting symptoms aligning with kyree. . The patient verbalizes understanding with all questions answered thoroughly and is in agreement with treatment plan. . Continue current treatment plan Patient/Guardian will call sooner if symptoms worsen. Patient understands to go to ER if needed if symptoms become severe. Crisis Intervention plan was discussed and agreed upon. Patient/Guardian will call 911 in case of emergency. Emergency contact information was provided to the patient/guardian. 06/01/2024 Obesity, unspecified class, unspecified obesity type, unspecified whether serious comorbidity present (ICD-10 - E66.9) 05/11/2024 JOSEP (generalized anxiety disorder) (ICD-10 - F41.1) Mood has room for improvement, will increase *Fluoxetine to 40mg QD. Discussed risks and side effects of medication. Patient denies SI/HI today. Follow up if mood does not improve. Patient verbalized understanding. 05/26/2024 Mood disorder (ICD-10 - F39) Patient will continue current treatment plan. Patient verbally acknowledges understanding instructions including medication education and has no further questions comments or concerns at this time. . Follow in 3 weeks . Recommended treatment for Bipolar disorder includes FDA approved and OFF label medications: second generation antipsychotics and mood stabilizers.Second generation antipsychotic medications can cause headache, drowsiness, agitation, dizziness, nausea, or extrapyramidal symptoms such as tremors, muscle spasms, slowness of movement or jerking of muscles. . Stable . The patient verbalizes understanding with all questions answered thoroughly and is in agreement with treatment plan. . Continue current treatment. Call for problems . GOALS: . Maintain medication regimen . _Improve mood stability . _Improve anxiety control . _Improve social and interpersonal functioning . Patient/Guardian will call sooner if symptoms worsen. Patient understands to go to ER if needed if symptoms become severe. . Crisis Intervention plan was discussed and agreed upon. Patient/Guardian will call 911 in case of emergency. Emergency contact information was provided to the patient/guardian. . Pharmacological management: . Alternative medication plans were discussed with the patient/guardian. All relevant side effects and potential adverse effects were discussed with the patient/guardian. Standard cautions and potential benefits were discussed. Patient/Guardian consented to the start/continuation of the treatment. 04/13/2024 Other Body Mass Index : Care Instructions material was published, Body Mass Index: Care Instructions material was printed 05/01/2024 Other Body Mass Index : Care Instructions material was published, Body Mass Index: Care Instructions material was printed 05/11/2024 Other Body Mass Index : Care Instructions material was published, Body Mass Index: Care Instructions material was printed 06/01/2024 Other Body Mass Index : Care Instructions material was published, Body Mass Index: Care Instructions material was printed 06/05/2024 Other Body Mass Index : Care Instructions material was published, Body Mass Index: Care Instructions material was printed 07/09/2024 Other Body Mass Index : Care Instructions material was published, Body Mass Index: Care Instructions material was printed Plan Of Treatment Pending Test Test Name Order Date CBC w/ Auto Diff 05/01/2024 CMP 05/01/2024 [id number] 05/01/2024 Next Appt Details Provider Name:Jailyn Murdock Gracie om, 07/31/2024 12:30:00 PM, [address] [place], [address], Provider Name:Paula fullerer, 08/03/2024 08:15:00 AM, [address] [place], [address], Insurance Providers Payer Name Payer Address Payer Phone Subscriber Number Group Number Insured Name Patient Relationship to Insured Coverage Start Date Coverage End Date [employer] [place] [employer] [address] [place] [address] [id number] MARLENEDAX Self - patient is the insured 5 ap [facility] [address] [place] [address] [id number] MARLENE DAX Self - patient is the insured 5 [employer] [place] [employer] [address] [place] [address] [id number] MARLENEDAX CAMPO Self - patient is the insured 5 [facility] [address] [place] [address] [phone] [id number] DAX OHARA Self - patient is the insured 5 Medical (General) History Medical History History ICD Code Anxiety OCD Hospitalization History Reason Date(Month/Year) ITP age 2
--- OUTSIDE RECORDS SUMMARY | 2024-07-10 13:18 | XMS_ITS | Encounter Summary ---
Author Organization [facility] Aber[facility]athy [facility] Address [address] [place] [address] Care Team Providers Care Infrastructure Solutions Architect Name Role Phone Norma Bernal APRN - MAILE Primary Care Provid er Encounter Details Date Type Department Care Team (Late st Contact Info) Description 06/11/2024 Results Follow-Up [facility] Obstetrics and Gynecology 45 [facility] [place] [id number] Cecy Guadalupe, COMMERCIAL DRIVER'S LICENSE DRIVER - CNM 27 [facility] [address] [place] [address] Social History Tobacco Use Types Packs/Day Years Used Date Smoking Tobacco: Never Smokeless Tobacco: Never Alcohol Use Standard Drinks/Week Comments No 0 (1 standard drink = 0.6 oz pur e alcohol) [facility] Utilities Answer Date Recorded In the past 12 months has [employer], gas, oil, or water [facility] threatened to shut off services in your [...] place to sleep or slept in a intermediate (including now)? No 03/28/2022 Housing Stability Vital Sign Answer Marvin e Recorded Unable to Pay for Housing in the Last Year Not o n file 04/21/2024 In the past 12 months, how m any times have you moved where you were living? 0 04/21/2024 At any time in the past 12 m [facility], were you homeless or living in a intermediate (including now)? No 04/21/2024 Food Insecurity Answer [...] Description 07/20/2024 8:00 AM EDT Ancillary Procedure [facility] OBSTETRICS & GYNECOLOGY Part of [address] [place] [address] OB 20 wk US 07/20/2024 9:00 AM EDT Routine [facility] OBSTETRICS & GYNECOLOGY Part of [address] [place] [address] Cecy Guadalupe, FEDERICO - CNIla [address] [place] [address] Dr Harry [address] [place] [address] OB 20 wk US 09/28/2024 8:30 AM EDT Ancillary Procedure [facility] OBSTETRICS & [facility]YNECOLOGY [address] [place] [address] ANTELMO 12/0609/28/2024 9:00 AM EDT Routine [facility] OBSTETRICS GYNECOLOGY [address] [place] [address] Cecy Guadalupe, FEDERICO - CNIla [address] [place] [address] Dr Harry 202 [facility] [place] [address] ANTELMO 12/06 documented as of this encounter Visit Diagnoses Not on filedocumented in this encounter Care Teams Infrastructure Solutions Architect Relationship Specialty Start Date End Date Norma Bernal APRN - VEHICLE SALES PROFESSIONAL [place] [phone] PCP - General Family Medicine 05/27/24 documented as of this encounter
--- OUTSIDE RECORDS SUMMARY | 2024-07-10 13:18 | XMS_ITS | Encounter Summary ---
Author Organization [facility] Address [address] [place] [address] Care Team Providers Care Field Pipe Lines Supervisor Name Role Phone Louann Mohr MD Primary Care Provider Encounter Details Date Type Department Care Team (Late st Contact Info) Description 04/13/2023 Abstract [facility] [address] [place] [phone] Dorita Lemos, PSYCHIATRIC TECHNICIAN ASSISTANT [address] [place] [address] Social History Tobacco Use Types Packs/Day Years Used Date Smoking Tobacco: Never Assessed Comments Unknown Sex and Gender Information Value Date Recorded Sex Assigned at Female 04/09/2024 10:04 AM EST Legal Sex Female 11:47 PM EDT Gender Identity Female 04/09/2024 10:04 AM EST Sexual Orientation Straight 04/09/2024 10 :04 AM EST documented as of this encounter Plan of Treatment Upcoming Encounters Date Type Department Care Team (Late st Contact Info) Description 07/20/2024 11:10 AM EDT Office Visit [facility] [address] [place] [phone] Nik Sheridan MD [address] [place] [address] documented as of this encounter Visit Diagnoses Not on filedocumented in this encounter Care Teams Field Pipe Lines Supervisor Relationship Specialty Start Date End Date Louann Mohr MD [address] [place] [phone] PCP - General Family Medicine 01/31/23 05/28/24 documented as of this encounter
--- OUTSIDE RECORDS SUMMARY | 2024-07-10 13:18 | XMS_ITS | Encounter Summary ---
Author Organization Daniel Abernathy [facility] Address [address] [place] [address] Care Team Providers Care Logging Assistant Name Role Phone Norma Bernal APRN - MAILE Primary Care Provid er Encounter Details Date Type Department Care Team (Late st Contact Info) Description 05/27/2024 Results Follow-Up [facility] Obstetrics and Gynecology 45 [facility] [place] [phone] Cecy Guadalupe, DORR OPERATOR - CNM 27 [facility] [address] [place] [address] Social History Tobacco Use Types Packs/Day Years Used Date Smoking Tobacco: Never Smokeless Tobacco: Never Alcohol Use Standard Drinks/Week Comments No 0 (1 standard drink = 0.6 oz pur e alcohol) [facility] Utilities Answer Date Recorded In the past 12 months has [employer], gas, oil, or water [employer] threatened to shut off services in your [...] any time in the past 12 m [facility], were you homeless or living in a [...] Description 07/20/2024 8:00 AM EDT Ancillary Procedure [facility] OBSTETRICS & GYNECOLOGY Part of [address] [place] [address] OB 20 wk US 07/20/2024 9:00 AM EDT Routine [facility] OBSTETRICS & GYNECOLOGY Part of [address] [place] [address] Cecy Guadalupe, FEDERICO - CNIla [address] [place] [address] Dr Harry [address] [place] [address] OB 20 wk US 09/28/2024 8:30 AM EDT Ancillary Procedure [facility] OBSTETRICS & [facility]YNECOLOGY [address] [place] [address] ANTELMO 12/0609/28/2024 9:00 AM EDT Routine [facility] OBSTETRICS GYNECOLOGY [address] [place] [address] Cecy Guadalupe, FEDERICO - CNIla [address] [place] [address] Dr Harry 202 [place] [address] ANTELMO 12/06 documented as of this encounter Visit Diagnoses Not on filedocumented in this encounter Care Teams Logging Assistant Relationship Specialty Start Date End Date Norma Bernal APRN - [place] [phone] PCP - General Family Medicine 05/27/24 documented as of this encounter
--- NOTE | 2024-07-10 13:33 | ECG_ITS ---
[facility] Test Date: 2024-07-10 Pat Name: DAX OHARA Department: Room: - Gender: Female Multicraft Operator: : 2005 Requested By: [id number] Order Number: [id number] Yg MD: SKY HUMPHREY M.D. Measurements Intervals [place] Rate: 125 P: 65 OK: 112 QRS: 32 QRSD: 74 T: 37 QT: 324 QTc: 398 Interpretive Statements 1120 Sinus tachycardia 2210 Short OK interval Borderline ECG No previous ECG available for comparison Electronically Signed On 07-11-2024 9:03:09 EDT by SKY HUMPHREY M.D.
--- NOTE | 2024-07-10 13:57 | ED_ITS ---
Documented by User: IRMA Goodman 07/10/24 14:57 HPI HPI - General Adult General Chief complaint: Nausea/Vomiting/Diarrhea Stated complaint: 18 WEEKS ABDOMINAL PAIN Time Seen by Provider: 07/10/24 13:32 Source: patient Mode of arrival: walk-in Limitations: no limitations History of Present Illness HPI narrative: Patient is a 19-year-old female presents to the ER with her significant other for evaluation of epigastric abdominal pain and recurrent vomiting. Patient states she is G1, P0 18 weeks gestation, with no reported complicati ons and sees an LOCOMOTIVE LUBRICATING SYSTEMS CLERK in [place]. Her PCP is in [place]. Patient states she has been having epigastric discomfort after eating for the past several weeks sometimes she will eat and then shortly later vomit this has become a recurrent episode for her in the last 2 weeks. Bowel movements without blood or pus she denies any diarrhea she denies any pelvic pain or vaginal discharge or bleeding. She denies any dysuria.. Patient denies feeling nauseous at this time but states after eating a chocolate bar and lemonade she vomited and developed sharp epigastric pain which is somewhat fleeting she has been placed on omeprazole by her LOCOMOTIVE LUBRICATING SYSTEMS CLERK and has been taking it for the past 2 weeks without significant difference. She denies any first trimester nausea or vomiting. Patient appears nontoxic in no acute distress with elevated BMI in . Onset (ago): week(s) Location: Reports abdomen (epigastric) Radiation: Denies non-radiation Severity: moderate Quality: Reports stabbing; Denies burning or aching Pain Consistency: Reports constant; Denies intermittent, now resolved or colicky Relieving factors: Reports none Exacerbating factors: Reports none Associated symptoms: Reports denies other symptoms Treatments prior to arrival: Reports none Related Data Previous Rx's ?Medication ?Instructions ?Recorded ondansetron HCl 4 mg tablet 4 mg PO Q6H PRN nausea and 07/10/24 vomiting #12 tabs Allergies Allergy/AdvReac Type Severity Reaction Status Date / Time promethazine Allergy Severe Hallucinati Verified 06/15/24 05:28 ng Sulfa (Sulfonamide Allergy Severe Hives Verified 06/15/24 05:28 Antibiotics) Opioid HPI Opioid Management Most Recent Opioid Data: Last Pain Scale 7 Today, 13:16 Review of Systems ROS Constitutional Denies: fever, chills or change in weight Eyes Denies: change in vision or blurry vision Ears, nose, mouth, and throat Denies: throat pain, neck pain, throat swelling or difficulty swallowing Cardiovascular Denies: chest pain, palpitations, edema, swelling of feet/ankles or lightheadedness Respiratory Denies: shortness of breath, cough or wheezing Gastrointestinal Reports: vomiting and heartburn; Denies: abdominal pain, diarrhea, constipation, bloating, belching or difficulty swallowing Genitourinary Denies: painful urination, urinary frequency or urinary urgency Musculoskeletal Denies: back pain, neck pain or extremity pain Integumentary/Breast Denies: rash, itching, redness or skin pain Neurological Denies: headache Psychiatric Denies: anxiety, mood swings or panic attacks Hematologic/Lymphatic Denies: easy bruising PFSH PFSH Social History Little interest or pleasure in doing things: not at all Feeling down, depressed, or hopeless: not at all Exam Narrative Exam Narrative: Nurses notes and vital signs reviewed and patient is not hypoxic. General: The patient appears well and in no apparent distress. Patient is resting comfortably on cart. Skin: Warm, dry, no pallor noted. Head: Normocephalic, atraumatic Neck: Supple, trachea mid-line, no tenderness, no lymphadenopathy Eye: Pupils are equal, round and reactive to light, EOMI Ears, Nose, Mouth, and Throat: TM are clear, normal light reflex, oral mucosa is moist, no posterior oropharynx erythema or hypertrophy, uvula is mid-line Cardiovascular: Regular, tachycardia Respiratory: Patient is in no distress, no accessory muscle use, lungs are clear to auscultation, no wheezing, rales or rhonchi. Chest Wall: no tenderness Back: non-tender, no CVA tenderness Musculoskeletal: normal ROM, no tenderness, no swelling GI: Obese abdomen , normal bowel sounds, minimal epigastric soreness, no significant tenderness to palpation gravid abdomen, No rebound, guarding, or rigidity noted. Neurological: A&O x4 Psychiatric: Cooperative Constitutional Vital Signs, click to edit/add: Last Vital Signs Temp 99.5 F 07/10/24 15:29 Pulse 113 H 07/10/24 15:29 Resp 22 H 07/10/24 15:29 BP 102/75 07/10/24 15:29 Pulse Ox 100 07/10/24 15:29 O2 Del Method Room Air 07/10/24 15:29 Course Vital Signs Vital signs: Vital Signs Temperature 98.2 F 07/10/24 13:16 Pulse Rate 132 H 07/10/24 13:16 Respiratory Rate 18 07/10/24 13:16 Blood Pressure 128/88 07/10/24 13:16 Pulse Oximetry 98 07/10/24 13:16 Temperature 99.5 F 07/10/24 15:29 Pulse Rate 113 H 07/10/24 15:29 Respiratory Rate 22 H 07/10/24 15:29 Blood Pressure 102/75 07/10/24 15:29 Pulse Oximetry 100 07/10/24 15:29 Oxygen Delivery Method Room Air 07/10/24 15:29 Medical Decision Making MDM Narrative Medical decision making narrative: FHT strong 150 and regular. Patient medicated with Maalox orally, IV Pepcid she denied being nauseous but later had a near episode of vomiting and was given IV Zofran. She received an IV fluid bolus and noted improvement in her symptoms still intermittent sharp pains in the epigastric region but improved abdomen is nonsurgical no tenderness in the right lower quadrant we discussed her laboratory studies. She is encouraged to do a clear liquid diet for the next 1224 hrs. and follow-up with her LOCOMOTIVE LUBRICATING SYSTEMS CLERK to discuss ongoing medication management she will continue with her omeprazole daily for her acid reflux but we discussed the diet choices that can also affect her symptoms. Should her symptoms worsen she should return to the ER for reevaluation but I do not feel she warrants any additional imaging at this time patient thankful had no further concerns or questions. She has no additional concerns related to her other than with vomiting after eating which has happened for the past 2 weeks. The patient is to followup with primary care physician in next 2-3 days or to return to the emergency department should any of the signs or symptoms worsen or new symptoms develop. Patient had questions answered. The patient agrees with the following Diagnosis and Treatment plan and the patient will be discharged home. Lab Data Labs: Lab Results 07/10/24 07/10/24 Range/Units 13:35 13:50 WBC 11.6 H (4.0-11.0) 10^3/uL RBC 3.91 L (4.20-5.40) 10^6/uL Hgb 12.3 (12.0-16.0) g/dL Hct 36.2 (36.0-48.0) % MCV 92.6 (81.0-99.0) fL MCH 31.5 (26.7-34.0) pg MCHC 34.0 (29.9-35.2) g/dL RDW 13.9 (11.0-15.0) % Plt Count 212 (150-450) 10^3/uL MPV 10.8 (9.5-13.5) fL Seg Neuts % (Manual) 90.0 H (43.0-75.0) Band Neutrophils % 6.0 H (0-5) % Lymphocytes % (Manual) 0.0 L (20.5-60.0) % Monocytes % (Manual) 1.0 L (1.7-12.0) % Eosinophils % (Manual) 0.0 L (0.9-7.0) % Basophils % (Manual) 1.0 (0.2-2.0) % Metamyelocytes % 2.0 Neutrophils # (Manual) 10.44 H (1.4-6.5) 10^3/uL Band Neutrophils # 0.7 H (0.0-0.3) 10^3/uL Lymphocytes # (Manual) 0.00 L (1.20-3.80) 10^3/uL Monocytes # (Manual) 0.11 L (0.30-0.80) 10^3/uL Eosinophils # (Manual) 0.00 (0.00-0.70) 10^3/uL Basophils # (Manual) 0.11 H (0.00-0.10) 10^3/uL Metamyelocytes # 0.23 Sodium 136 (136-145) mmol/L Potassium 4.3 (3.5-5.1) mmol/L Chloride 102 (98-107) mmol/L Carbon Dioxide 23.7 (21.0-32.0) mmol/L Anion Gap 14.6 BUN 8.0 (7.0-18.0) mg/dL Creatinine 0.52 L (0.55-1.02) mg/dL Est GFR ( Amer) >60 (>=60 mL/min/1.73m^2) Est GFR (Non-Af Amer) >60 (>=60 mL/min/1.73m^2) BUN/Creatinine Ratio 15.4 Glucose 102 (74-106) mg/dL Calcium 9.4 (8.5-10.1) mg/dL Total Bilirubin 0.5 (0.2-1.0) mg/dL AST 34 (15-37) U/L ALT 41 (14-59) U/L Alkaline Phosphatase 74 (46-116) U/L Total Protein 7.3 (6.4-8.2) g/dL Albumin 3.1 L (3.4-5.0) g/dL Globulin 4.2 g/dL Albumin/Globulin Ratio 0.7 Lipase 26.0 (16.0-77.0) U/L Urine Color Dk. yellow (YELLOW) Urine Clarity Clear (CLEAR) Urine pH 6.0 (5.0-9.0) Ur Specific [place] >=1.030 A (1.005-1.025) Urine Protein 30 A (NEG/TRACE) mg/dL Urine Glucose (UA) Negative (NEGATIVE) mg/dL Urine Ketones >=80 A (NEGATIVE) mg/dL Urine Occult Blood Negative (NEGATIVE) Urine Nitrite Negative (NEGATIVE) Urine Bilirubin Moderate A (NEGATIVE) Urine Urobilinogen 1.0 (0.2-1.0) EU/dL Ur Leukocyte Esterase Negative (NEGATIVE) Urine RBC 0-2 (0-2) #/HPF Urine WBC 0-2 A (NONE SEEN) #/HPF Ur Squamous Epith Cells Moderate A (NONE/RARE) #/LPF Urine Crystals None seen (None Seen) #/HPF Urine Bacteria Trace A (NONE SEEN) #/HPF Urine Casts None seen (NONE SEEN) #/LPF Urine Mucus Large A (NONE SEEN) Ur Culture Indicated? No ECG Data Attestation: I personally reviewed and interpreted this ECG as follows: Interpretation: EKG interpretation: Emergency Department physician interpretation, Sinus Tachycardia 125bpm. no ectopy, no ST segment elevation, normal axis. Discharge Plan Discharge Chief Complaint: Nausea/Vomiting/Diarrhea Clinical Impression: Epigastric abdominal pain during , Nausea & vomiting Patient Disposition: Home, Self-Care Time of Disposition Decision: 14:49 Condition: Good Prescriptions / Home Meds: New ondansetron HCl 4 mg tablet 4 mg PO Q6H PRN (Reason: nausea and vomiting) Qty: 12 0RF Print Language: Togolese Instructions: GERD (Gastroesophageal Reflux Disease) (ED), Epigastric Pain (ED) Additional Instructions: Contact your OBGYN as soon as possible to discuss follow up and medication. Clear liquid recommend for 12-24 hours Referrals: SEMAJ SHAH [Primary Care Provider, Unknown] - 1 week Discharge Date/Time: 07/10/24 15:32 Documented by User: Shamar Rodriguez MD 07/10/24 19:46 HPI HPI - General Adult General Chief complaint: Nausea/Vomiting/Diarrhea Stated complaint: 18 WEEKS ABDOMINAL PAIN Time Seen by Provider: 07/10/24 13:32 Related Data Previous Rx's ?Medication ?Instructions ?Recorded ondansetron HCl 4 mg tablet 4 mg PO Q6H PRN nausea and 07/10/24 vomiting #12 tabs Allergies Allergy/AdvReac Type Severity Reaction Status Date / Time promethazine Allergy Severe Hallucinati Verified 06/15/24 05:28 ng Sulfa (Sulfonamide Allergy Severe Hives Verified 06/15/24 05:28 Antibiotics) Opioid HPI Opioid Management Most Recent Opioid Data: Last Pain Scale 7 Today, 13:16 PFSH PFSH Social History Little interest or pleasure in doing things: not at all Feeling down, depressed, or hopeless: not at all Exam Constitutional Vital Signs, click to edit/add: Last Vital Signs Temp 99.5 F 07/10/24 15:29 Pulse 113 H 07/10/24 15:29 Resp 22 H 07/10/24 15:29 BP 102/75 07/10/24 15:29 Pulse Ox 100 07/10/24 15:29 O2 Del Method Room Air 07/10/24 15:29 Course Vital Signs Vital signs: Vital Signs Temperature 98.2 F 07/10/24 13:16 Pulse Rate 132 H 07/10/24 13:16 Respiratory Rate 18 07/10/24 13:16 Blood Pressure 128/88 07/10/24 13:16 Pulse Oximetry 98 07/10/24 13:16 Temperature 99.5 F 07/10/24 15:29 Pulse Rate 113 H 07/10/24 15:29 Respiratory Rate 22 H 07/10/24 15:29 Blood Pressure 102/75 07/10/24 15:29 Pulse Oximetry 100 07/10/24 15:29 Oxygen Delivery Method Room Air 07/10/24 15:29 Medical Decision Making MDM Narrative Medical decision making narrative: FHT strong 150 and regular. Patient medicated with Maalox orally, IV Pepcid she denied being nauseous but later had a near episode of vomiting and was given IV Zofran. She received an IV fluid bolus and noted improvement in her symptoms still intermittent sharp pains in the epigastric region but improved abdomen is nonsurgical no tenderness in the right lower quadrant we discussed her laboratory studies. She is encouraged to do a clear liquid diet for the next 1224 hrs. and follow-up with her LOCOMOTIVE LUBRICATING SYSTEMS CLERK to discuss ongoing medication management she will continue with her omeprazole daily for her acid reflux but we discussed the diet choices that can also affect her symptoms. Should her symptoms worsen she should return to the ER for reevaluation but I do not feel she warrants any additional imaging at this time patient thankful had no further concerns or questions. She has no additional concerns related to her other than with vomiting after eating which has happened for the past 2 weeks. The patient is to followup with primary care physician in next 2-3 days or to return to the emergency department should any of the signs or symptoms worsen or new symptoms develop. Patient had questions answered. The patient agrees with the following Diagnosis and Treatment plan and the patient will be discharged home. I, Dr Rodriguez, have reviewed the above progress note and course of action in the ER; agree with the above. I have personally gone over history and physical, and discussed disposition and treatment plan with the PA. Lab Data Labs: Lab Results 07/10/24 07/10/24 Range/Units 13:35 13:50 WBC 11.6 H (4.0-11.0) 10^3/uL RBC 3.91 L (4.20-5.40) 10^6/uL Hgb 12.3 (12.0-16.0) g/dL Hct 36.2 (36.0-48.0) % MCV 92.6 (81.0-99.0) fL MCH 31.5 (26.7-34.0) pg MCHC 34.0 (29.9-35.2) g/dL RDW 13.9 (11.0-15.0) % Plt Count 212 (150-450) 10^3/uL MPV 10.8 (9.5-13.5) fL Seg Neuts % (Manual) 90.0 H (43.0-75.0) Band Neutrophils % 6.0 H (0-5) % Lymphocytes % (Manual) 0.0 L (20.5-60.0) % Monocytes % (Manual) 1.0 L (1.7-12.0) % Eosinophils % (Manual) 0.0 L (0.9-7.0) % Basophils % (Manual) 1.0 (0.2-2.0) % Metamyelocytes % 2.0 Neutrophils # (Manual) 10.44 H (1.4-6.5) 10^3/uL Band Neutrophils # 0.7 H (0.0-0.3) 10^3/uL Lymphocytes # (Manual) 0.00 L (1.20-3.80) 10^3/uL Monocytes # (Manual) 0.11 L (0.30-0.80) 10^3/uL Eosinophils # (Manual) 0.00 (0.00-0.70) 10^3/uL Basophils # (Manual) 0.11 H (0.00-0.10) 10^3/uL Metamyelocytes # 0.23 Sodium 136 (136-145) mmol/L Potassium 4.3 (3.5-5.1) mmol/L Chloride 102 (98-107) mmol/L Carbon Dioxide 23.7 (21.0-32.0) mmol/L Anion Gap 14.6 BUN 8.0 (7.0-18.0) mg/dL Creatinine 0.52 L (0.55-1.02) mg/dL Est GFR ( Amer) >60 (>=60 mL/min/1.73m^2) Est GFR (Non-Af Amer) >60 (>=60 mL/min/1.73m^2) BUN/Creatinine Ratio 15.4 Glucose 102 (74-106) mg/dL Calcium 9.4 (8.5-10.1) mg/dL Total Bilirubin 0.5 (0.2-1.0) mg/dL AST 34 (15-37) U/L ALT 41 (14-59) U/L Alkaline Phosphatase 74 (46-116) U/L Total Protein 7.3 (6.4-8.2) g/dL Albumin 3.1 L (3.4-5.0) g/dL Globulin 4.2 g/dL Albumin/Globulin Ratio 0.7 Lipase 26.0 (16.0-77.0) U/L Urine Color Dk. yellow (YELLOW) Urine Clarity Clear (CLEAR) Urine pH 6.0 (5.0-9.0) Ur Specific [place] >=1.030 A (1.005-1.025) Urine Protein 30 A (NEG/TRACE) mg/dL Urine Glucose (UA) Negative (NEGATIVE) mg/dL Urine Ketones >=80 A (NEGATIVE) mg/dL Urine Occult Blood Negative (NEGATIVE) Urine Nitrite Negative (NEGATIVE) Urine Bilirubin Moderate A (NEGATIVE) Urine Urobilinogen 1.0 (0.2-1.0) EU/dL Ur Leukocyte Esterase Negative (NEGATIVE) Urine RBC 0-2 (0-2) #/HPF Urine WBC 0-2 A (NONE SEEN) #/HPF Ur Squamous Epith Cells Moderate A (NONE/RARE) #/LPF Urine Crystals None seen (None Seen) #/HPF Urine Bacteria Trace A (NONE SEEN) #/HPF Urine Casts None seen (NONE SEEN) #/LPF Urine Mucus Large A (NONE SEEN) Ur Culture Indicated? No Discharge Plan Discharge Chief Complaint: Nausea/Vomiting/Diarrhea Clinical Impression: Epigastric abdominal pain during , Nausea & vomiting Patient Disposition: Home, Self-Care Time of Disposition Decision: 14:49 Condition: Good Prescriptions / Home Meds: New ondansetron HCl 4 mg tablet 4 mg PO Q6H PRN (Reason: nausea and vomiting) Qty: 12 0RF Print Language: Togolese Instructions: GERD (Gastroesophageal Reflux Disease) (ED), Epigastric Pain (ED) Additional Instructions: Contact your OBGYN as soon as possible to discuss follow up and medication. Clear liquid recommend for 12-24 hours Referrals: SEMAJ SHAH [Primary Care Provider, Unknown] - 1 week Discharge Date/Time: 07/10/24 15:32
[2024-07-10 14:02] LABS: Hematocrit 36.2 % (36.0-48.0); Hemoglobin 12.3 g/dL (12.0-16.0); Mean Corpuscular Hemoglobin 31.5 pg (26.7-34.0); Mean Corpuscular Volume 92.6 fL (81.0-99.0); Mean Platelet Volume 10.8 fL (9.5-13.5); Platelet Count 212 10^3/uL (150-450); Red Blood Count 3.91 10^6/uL (4.20-5.40); Red Cell Distribution Width 13.9 % (11.0-15.0); White Blood Count 11.6 10^3/uL (4.0-11.0)
[2024-07-10 14:03] LABS: Bilirubin Urine MODERATE (NEGATIVE); Blood Urine NEGATIVE (NEGATIVE); Clarity Urine CLEAR (CLEAR); Color Urine DK. YELLOW (YELLOW); Glucose Urine UA NEGATIVE (NEGATIVE); Ketones Urine >=80 mg/dL (NEGATIVE); Leukocyte Esterase Urine NEGATIVE (NEGATIVE); Nitrite Urine NEGATIVE (NEGATIVE); Protein Urine 30 mg/dL (NEG/TRACE); Specific Gravity Urine >=1.030 (1.005-1.025)
[2024-07-10] MEDS: 0.9 % SODIUM CHLORIDE 1,000 ML 999 ML IV (14:04)
[2024-07-10] MEDS: MAALOX (MAG HYDROX/ALUMINUM HYD/SIMETH) 30 ML ORAL.SUSP PO (14:05)
[2024-07-10 14:13] LABS: Bacteria Urine TRACE #/HPF (NONE SEEN); Cast Seen? NONE SEEN #/LPF (NONE SEEN); Crystals Seen? None Seen #/HPF (None Seen); Mucus Urine LARGE (NONE SEEN); RBC Urine 0-2 #/HPF (0-2); Squamous Epithelial Cell Urine MODERATE #/LPF (NONE/RARE); Urine Culture Indicated NO; WBC Urine 0-2 #/HPF (NONE SEEN)
[2024-07-10 14:16] LABS: Alanine Aminotransferase 41 U/L (14-59); Albumin Globulin Ratio 0.7; Albumin Level 3.1 g/dL (3.4-5.0); Alkaline Phosphatase 74 U/L (46-116); Anion Gap 14.6; Aspartate Amino Transferase 34 U/L (15-37); BUN Creatinine Ratio 15.4; Band Neutrophils Absolute 0.7 10^3/uL (0.0-0.3); Basophils Abs Manual 0.11 10^3/uL (0.00-0.10); Bilirubin Total 0.5 mg/dL (0.2-1.0); Calcium 9.4 mg/dL (8.5-10.1); Carbon Dioxide 23.7 mmol/L (21.0-32.0); Chloride 102 mmol/L (98-107); Estimated GFR (African America >60 (>=60 mL/min/1.73m^2); Estimated GFR (Non-African Ame >60 (>=60 mL/min/1.73m^2); Globulin 4.2 g/dL; Glucose 102 mg/dL (74-106); Metamyelocytes Absolute Manual 0.23; Monocytes Absolute Manual 0.11 10^3/uL (0.30-0.80); Potassium 4.3 mmol/L (3.5-5.1); Segmented Neut Absolute Manual 10.44 10^3/uL (1.4-6.5); Sodium 136 mmol/L (136-145); Total Protein 7.3 g/dL (6.4-8.2)
[2024-07-10] MEDS: FAMOTIDINE/PF 20 MG/2 ML VIAL IV (14:27)
[2024-07-10] MEDS: ONDANSETRON PF 4 MG/2 ML VIAL IV (14:27)
== END 2024-07-10 15:32 | disposition home or self-care (01) ==
PROVIDERS: Personal Emergency Response Attendant; Emergency Provider Emergency Medicine; PCP Nurse Practitioner Family
DX: O21.9 Vomiting of pregnancy, unspecified (principal); Z3A.18 18 weeks gestation of pregnancy; O26.892 Other specified pregnancy related conditions, second trimester; R10.13 Epigastric pain
CPT/HCPCS: 36415; 80053; 81001; 83690; 85007; 85027; 93005; 96361; 96374; 96375; 99285; J2405; J3490